=== PATIENT | female | born 1955 | race Caucasian/White ===

== ENCOUNTER 2018-05-16 05:49 | Inpatient (IN) ==
[2018-05-10 10:57] LABS: Basophils % 0.1 % (0.0-0.8); Eosinophils % 0.3 % (0.00-10.9); Hematocrit 39.5 VOL% (35.7-47.0); Hemoglobin 12.6 GM/DL (12.0-16.0); Immature Granulocytes % 0.3 %; Immature Granulocytes Absolute 0.02 #; Lymphocytes % 13.8 % (21.3-54.2); Mean Corpuscular HGB Conc 31.9 GM/DL (32-36); Mean Corpuscular Hemoglobin 33 PG (27-34); Mean Corpuscular Volume 103.1 FL (87-102); Mean Platelet Volume 10.2 FL (9.6-12.0); Monocytes # 0.2 10*3/uL (0.11-0.8); Monocytes % 2.3 % (1.7-12.7); Neutrophils # 6.3 10*3/uL (1.4-7.4); Neutrophils % 83.2 % (38.7-73.9); Platelet Count 186 T/CUMM (130-400); Red Blood Count 3.83 MC/CUMM (3.8-5.5); Red Cell Distribution Width 13.2 % (9.3-17.3); White Blood Count 7.5 T/CUMM (4-12)
[2018-05-10 11:01] LABS: Apearance,Urine Slightly Hazy (Clear); Bilirubin,Urine Negative (Negative); Blood, Urine Negative (Negative); Glucose,Urine (UA) Negative (Negative); Ketones,Urine Negative (Negative); Nitrite,Urine Negative (Negative); Protein,Urine Negative; Urine Color Yellow (Yellow); Urine Specific Gravity 1.013 (1.001-1.035); Urine Urobilinogen < 2.0 EU/DL (0.2-1.0)
[2018-05-10 11:09] LABS: INR 0.9; Partial Thromboplastin Time 27.2 SECS (0-40)
[2018-05-10 11:11] LABS: Bacteria,Urine 2+ /HPF (Few); RBC,Urine 0-1 /HPF (0-4); Squamous Epithelial Cell,Urine 1+ /HPF (0-10); WBC,Urine 15-20 /HPF (0-6)
[2018-05-10 11:29] LABS: Alanine Aminotransferase 26 U/L (13-56); Albumin 3.4 G/DL (3.4-5.0); Alkaline Phosphatase 79 U/L (45-117); Aspartate Amino Transferase 21 U/L (0-37); Bilirubin,Total < 0.39 MG/DL (0.2-1.0); Blood Urea Nitrogen 18 MG/DL (7-18); Calcium 8.3 MG/DL (8.5-10.1); Glucose 197 MG/DL (74-106); Osmolality,Calculated 285.4 MOS/KG (273-304); Potassium 3.8 MMOL/L (3.5-5.1); Sodium 140 MMOL/L (136-145); Total Protein 6.9 G/DL (6.4-8.3)
[2018-05-16] MEDS ORDERED: ceFAZolin 1,000 MG in SYRINGE 1 EACH IV ONE (06:00)
[2018-05-16] MEDS ORDERED: VANCOMYCIN INJ 1,000 MG in SODIUM CHLORIDE 0.9% 250 ML IV ONE (06:00)
[2018-05-16 06:35] LABS: INR 0.9; PT Patient Result 9.6 SECS; Partial Thromboplastin Time 25.5 SECS (0-40)
[2018-05-16] MEDS ORDERED: DIAZEPAM 5 MG TABLET PO ONE (06:43)
[2018-05-16] MEDS ORDERED: FAMOTIDINE 20 MG TABLET PO ONE (06:44)
[2018-05-16] MEDS ORDERED: VANCOMYCIN 1,000 MG VIAL ONE (07:10)
[2018-05-16] MEDS ORDERED: ceFAZolin 1,000 MG VIAL ONE (07:10)
[2018-05-16] MEDS ORDERED: DIAZEPAM 5 MG TABLET ONE (07:11)
[2018-05-16] MEDS ORDERED: FAMOTIDINE 20 MG TABLET ONE (07:12)
[2018-05-16] MEDS: LACTATED RINGERS 1,000 ML IV SCH ×4 (07:41→20:44)
[2018-05-16] MEDS ORDERED: ROPIVACAINE 0.5% 30 ML VIAL ONE ×3 (08:04→14:31)
[2018-05-16] MEDS ORDERED: BACITRACIN OINT 0.9 GM PACK TOP ONE (09:17)
[2018-05-16] MEDS ORDERED: MORPHINE 4 MG/1 ML VIAL IV PRN (09:57)
[2018-05-16] MEDS ORDERED: diphenhydrAMINE CAP 25 MG CAPSULE PO PRN (09:57)
[2018-05-16] MEDS ORDERED: MAGNESIUM HYDROXIDE SUSP 30 ML UDCUP PO PRN (09:57)
[2018-05-16] MEDS ORDERED: oxyCODONE IR 5 MG TABLET PO PRN (09:57)
[2018-05-16] MEDS ORDERED: ONDANSETRON 4 MG/2 ML VIAL IV PRN (09:57)
[2018-05-16] MEDS ORDERED: DEXTROSE 50% 25 GM/50 ML VIAL IV PRN (10:00)
[2018-05-16] MEDS ORDERED: GLUCAGON 1 MG VIAL IM PRN (10:00)
[2018-05-16] MEDS ORDERED: MIDAZOLAM 2 MG/2 ML VIAL ONE (10:28)
[2018-05-16] MEDS ORDERED: BUPIVACAINE SPINAL 0.75% 2 ML AMP SPINAL ONE (10:28)
[2018-05-16] MEDS ORDERED: TRANEXAMIC ACID 1,000 MG/10 ML VIAL ONE (10:28)
[2018-05-16] MEDS ORDERED: fentaNYL 100 MCG/2 ML VIAL ONE (10:28)
[2018-05-16] MEDS ORDERED: PROPOFOL 200 MG/20 ML VIAL IV ONE (10:29)
[2018-05-16] MEDS ORDERED: KETAMINE 500 MG/10 ML VIAL ONE (10:30)
[2018-05-16] MEDS ORDERED: ETOMIDATE 40 MG/20 ML VIAL IV ONE (10:30)
[2018-05-16] MEDS ORDERED: TEMAZEPAM 15 MG CAPSULE PO PRN (11:00)
[2018-05-16] MEDS: MORPHINE 4 MG/1 ML VIAL IV PRN ×2 (11:55→22:00)
[2018-05-16] MEDS ORDERED: LACTATED RINGERS 1,000 ML IV ONE (12:12)
[2018-05-16] MEDS ORDERED: SODIUM CHLORIDE 0.9% 100 ML IV ONE (12:12)
[2018-05-16] MEDS: oxyCODONE IR 5 MG TABLET PO PRN (12:55)
[2018-05-16] MEDS: KETOROLAC 30 MG/1 ML VIAL IV SCH ×3 (13:38→21:59)
[2018-05-16] MEDS: INSULIN LISPRO 100 UNIT/ML SUBCUT SCH ×3 (14:39→20:49)
[2018-05-16] MEDS: ceFAZolin 2,000 MG in PREMIX 1 EACH IV SCH ×2 (15:47→22:01)
[2018-05-16] MEDS: ACETAMINOPHEN 500 MG TABLET PO SCH ×2 (15:49→20:58)
[2018-05-16] MEDS ORDERED: WARFARIN 7.5 MG TABLET PO SCH (18:00)
[2018-05-16] MEDS: DOCUSATE SODIUM 100 MG CAPSULE PO SCH (20:58)
[2018-05-16] MEDS: TOPIRAMATE 25 MG TABLET PO SCH (20:58)
[2018-05-16] MEDS: buPROPion SR 150 MG TABLET PO SCH (20:58)
[2018-05-16] MEDS: SULFAMETHOX/TRIMETHOPRIM 800-160 MG TABLET PO SCH (20:58)
[2018-05-16] MEDS ORDERED: DILTIAZEM CD 300 MG CAPSULE PO SCH (21:00)
[2018-05-16] MEDS ORDERED: DOXEPIN 25 MG CAPSULE PO SCH (21:00)
[2018-05-16] MEDS ORDERED: FLUoxetine 20 MG CAPSULE PO SCH (21:00)
[2018-05-16] MEDS ORDERED: CARVEDILOL CR 20 MG CAPSULE PO SCH (21:00)
[2018-05-16] MEDS: CARVEDILOL 6.25 MG TABLET PO SCH (22:02)
[2018-05-17] MEDS: MORPHINE 4 MG/1 ML VIAL IV PRN ×2 (00:57→12:29)
[2018-05-17] MEDS: ACETAMINOPHEN 500 MG TABLET PO SCH ×2 (02:57→09:20)
[2018-05-17] MEDS: KETOROLAC 30 MG/1 ML VIAL IV SCH (04:54)
[2018-05-17] MEDS: LACTATED RINGERS 1,000 ML IV SCH (04:56)
[2018-05-17 05:20] LABS: Basophils % 0.1 % (0.0-0.8); Eosinophils # 0.1 10*3/uL (0.0-0.87); Eosinophils % 1.3 % (0.00-10.9); Hematocrit 31.7 VOL% (35.7-47.0); Hemoglobin 9.9 GM/DL (12.0-16.0); Immature Granulocytes % 0.4 %; Immature Granulocytes Absolute 0.03 #; Lymphocytes # 1.2 10*3/uL (1.4-4.0); Lymphocytes % 16.9 % (21.3-54.2); Mean Corpuscular HGB Conc 31.2 GM/DL (32-36); Mean Corpuscular Hemoglobin 33 PG (27-34); Mean Corpuscular Volume 104.3 FL (87-102); Mean Platelet Volume 10.5 FL (9.6-12.0); Monocytes # 0.9 10*3/uL (0.11-0.8); Monocytes % 12.4 % (1.7-12.7); Neutrophils # 4.9 10*3/uL (1.4-7.4); Neutrophils % 68.9 % (38.7-73.9); Platelet Count 144 T/CUMM (130-400); Red Blood Count 3.04 MC/CUMM (3.8-5.5); Red Cell Distribution Width 13.2 % (9.3-17.3); White Blood Count 7.2 T/CUMM (4-12)
[2018-05-17 05:26] LABS: PT Patient Result 10.5 SECS
[2018-05-17 05:32] LABS: Calcium 7.8 MG/DL (8.5-10.1); Osmolality,Calculated 281.4 MOS/KG (273-304); Potassium 3.8 MMOL/L (3.5-5.1)
[2018-05-17] MEDS ORDERED: WARFARIN 5 MG TABLET PO ONE (06:44)
[2018-05-17] MEDS ORDERED: ASPIRIN EC 81 MG TABLET PO SCH (09:00)
[2018-05-17] MEDS ORDERED: ENOXAPARIN 40 MG/0.4 ML SYRINGE SUBCUT SCH (09:00)
[2018-05-17] MEDS ORDERED: FOLIC ACID 1 MG TABLET PO SCH (09:00)
[2018-05-17] MEDS: buPROPion SR 150 MG TABLET PO SCH (09:17)
[2018-05-17] MEDS: SULFAMETHOX/TRIMETHOPRIM 800-160 MG TABLET PO SCH (09:17)
[2018-05-17] MEDS: CARVEDILOL 6.25 MG TABLET PO SCH (09:17)
[2018-05-17] MEDS: DOCUSATE SODIUM 100 MG CAPSULE PO SCH (09:17)
[2018-05-17] MEDS: TOPIRAMATE 25 MG TABLET PO SCH (09:20)
[2018-05-17] MEDS: oxyCODONE IR 5 MG TABLET PO PRN (10:34)
[2018-05-17 11:35] VITALS: BP 120/78
[2018-05-17] MEDS ORDERED: WARFARIN 5 MG TABLET PO SCH (18:00)
== END 2018-05-17 16:44 | disposition home health service (06) | DRG 470 ==
LOC: N.OR 05:49 → N.SDSINP 05:50 → N.3E 09:18
PROVIDERS: ADMIT Orthopaedic Surgery; ATTEND Orthopaedic Surgery

== ENCOUNTER 2021-10-28 06:44 | Inpatient (IN) ==
[2021-10-23 13:44] LABS: Basophils % 0.3 % (0.0-0.8); Eosinophils # 0.1 10*3/uL (0.0-0.87); Eosinophils % 1.3 % (0.00-10.9); Hematocrit 40.5 VOL% (35.7-47.0); Hemoglobin 13.4 GM/DL (12.0-16.0); Immature Granulocytes % 0.4 %; Immature Granulocytes Absolute 0.03 #; Lymphocytes # 1.8 10*3/uL (1.4-4.0); Lymphocytes % 22.7 % (21.3-54.2); Mean Corpuscular HGB Conc 33.1 GM/DL (32-36); Mean Platelet Volume 10.3 FL (9.6-12.0); Monocytes # 0.8 10*3/uL (0.11-0.8); Monocytes % 9.4 % (1.7-12.7); Neutrophils % 65.9 % (38.7-73.9); Platelet Count 244 T/CUMM (130-400); Red Blood Count 4.01 MC/CUMM (3.8-5.5); Red Cell Distribution Width 13.9 % (9.3-17.3)
[2021-10-23 14:05] LABS: Albumin 3.6 G/DL (3.4-5.0); Bilirubin,Total 0.4 MG/DL (0.20-1.00); Osmolality,Calculated 290.3 MOS/KG (273-304); Potassium 3.7 MMOL/L (3.5-5.1); Total Protein 6.5 G/DL (6.4-8.2)
[~2021-10-28 06:44] MED LIST: LACTATED RINGERS 1,000 ML IV SCH; ceFAZolin 2,000 MG/50 ML DUPLEX IV ONE
[2021-10-28 07:23] LABS: INR 0.9; PT Patient Result 10.2 SECS (10.5-12.0)
[2021-10-28] MEDS ORDERED: buprenorphine HCL 0.3 MG/ML VIAL ONE (07:27)
[2021-10-28] MEDS ORDERED: LIDOCAINE MPF 2% /EPI 20 ML VIAL ONE (07:27)
[2021-10-28] MEDS ORDERED: HEPARIN/NACL 0.9% 2 UNITS/ML 1,000 UNIT/500 ML BAG IV ONE (07:27)
[2021-10-28] MEDS ORDERED: DIAZEPAM 5 MG TABLET PO ONE (07:55)
[2021-10-28] MEDS ORDERED: ROCURONIUM 50 MG/5 ML VIAL IV ONE ×2 (08:01→10:35)
[2021-10-28] MEDS ORDERED: fentaNYL 250 MCG/5 ML VIAL ONE (08:01)
[2021-10-28] MEDS ORDERED: ETOMIDATE 40 MG/20 ML VIAL IV ONE (08:01)
[2021-10-28] MEDS ORDERED: propofoL 200 MG/20 ML VIAL IV ONE (08:01)
[2021-10-28] MEDS ORDERED: MIDAZOLAM 2 MG/2 ML VIAL ONE (08:01)
[2021-10-28] MEDS ORDERED: SEVOFLURANE 1 UNIT/15 MINUTE INH ONE (08:01)
[2021-10-28] MEDS ORDERED: LIDOCAINE 2% 5 ML VIAL ONE (08:01)
[2021-10-28] MEDS ORDERED: ONDANSETRON 4 MG/2 ML VIAL ONE (08:01)
[2021-10-28] MEDS ORDERED: ROPIVACAINE 0.5% 30 ML VIAL ONE (08:08)
[2021-10-28] MEDS ORDERED: DEXAMETHASONE 4 MG/1 ML VIAL ONE (08:08)
[2021-10-28] MEDS ORDERED: LIDOCAINE 1% 5 ML VIAL ONE (08:08)
[2021-10-28] MEDS ORDERED: VANCOMYCIN 500 MG VIAL ONE (08:13)
[2021-10-28] MEDS ORDERED: ACETAMINOPHEN INJ 1,000 MG/100 ML VIAL IV ONE (09:47)
[2021-10-28] MEDS ORDERED: PHENYLEPHRINE 1 MG/10 ML SYRINGE IV ONE ×2 (10:29→10:57)
[2021-10-28] MEDS ORDERED: LACTATED RINGERS 1,000 ML IV ONE (10:29)
[2021-10-28] MEDS ORDERED: SUGAMMADEX 200 MG/2 ML VIAL IV ONE (11:04)
[2021-10-28] MEDS ORDERED: ONDANSETRON 4 MG/2 ML VIAL IV PRN ×2 (11:35→12:03)
[2021-10-28] MEDS ORDERED: HYDROmorphone 1 MG/1 ML SYRINGE IV PRN (11:35)
[2021-10-28] MEDS ORDERED: GLUCAGON 1 MG VIAL IM PRN (11:35)
[2021-10-28] MEDS ORDERED: KETOROLAC 30 MG/1 ML VIAL IV ONE (11:42)
[2021-10-28] MEDS ORDERED: LEVALBUTEROL 1.25 MG/3 ML NEB RESP TX ONE (11:44)
[2021-10-28] MEDS ORDERED: DEXTROSE 10% 250 ML BAG IV PRN (11:47)
[2021-10-28] MEDS: HYDROmorphone 1 MG/1 ML SYRINGE IV PRN ×5 (12:00→20:40)
[2021-10-28 12:25] LABS: Basophils % 0.1 % (0.0-0.8); Eosinophils % 0.2 % (0.00-10.9); Hematocrit 37.5 VOL% (35.7-47.0); Hemoglobin 12.2 GM/DL (12.0-16.0); Immature Granulocytes % 0.6 %; Immature Granulocytes Absolute 0.06 #; Lymphocytes # 1.3 10*3/uL (1.4-4.0); Lymphocytes % 13.2 % (21.3-54.2); Mean Corpuscular HGB Conc 32.5 GM/DL (32-36); Mean Corpuscular Volume 102.5 FL (87-102); Mean Platelet Volume 9.9 FL (9.6-12.0); Monocytes # 0.2 10*3/uL (0.11-0.8); Monocytes % 2.4 % (1.7-12.7); Neutrophils % 83.5 % (38.7-73.9); Platelet Count 208 T/CUMM (130-400); Red Blood Count 3.66 MC/CUMM (3.8-5.5); White Blood Count 9.9 T/CUMM (4-12)
[2021-10-28 12:34] LABS: Calcium 8.5 MG/DL (8.5-10.1); Osmolality,Calculated 281.5 MOS/KG (273-304); Potassium 4.5 MMOL/L (3.5-5.1)
[2021-10-28] MEDS ORDERED: DILTIAZEM 30 MG TABLET PO ONE (13:52)
[2021-10-28] MEDS: KETOROLAC 10 MG TABLET PO SCH ×3 (13:57→23:11)
[2021-10-28] MEDS: POTASSIUM CHLORIDE INJ 10 MEQ in SODIUM CHLORIDE 0.45% 1,000 ML IV SCH ×2 (15:13→23:12)
[2021-10-28] MEDS: CYCLOBENZAPRINE 10 MG TABLET PO SCH ×2 (15:13→20:40)
[2021-10-28] MEDS ORDERED: NITROPRUSSIDE 100 MG in DEXTROSE 5% 246 ML IV PRN (15:17)
[2021-10-28] MEDS ORDERED: NITROPRUSSIDE 50 MG/2 ML VIAL ONE ×2 (15:41→15:43)
[2021-10-28] MEDS: INSULIN REGULAR 100 UNIT/ML SUBCUT SCH ×2 (16:45→20:49)
[2021-10-28] MEDS: carvediloL 6.25 MG TABLET PO SCH (20:40)
[2021-10-28] MEDS: buPROPion SR 150 MG TABLET PO SCH (20:40)
[2021-10-28] MEDS: DOXEPIN 25 MG CAPSULE PO SCH (20:40)
[2021-10-29] MEDS: HYDROmorphone 1 MG/1 ML SYRINGE IV PRN ×4 (04:41→18:10)
[2021-10-29 04:53] LABS: Basophils % 0.1 % (0.0-0.8); Hematocrit 34.1 VOL% (35.7-47.0); Immature Granulocytes % 0.5 %; Immature Granulocytes Absolute 0.08 #; Lymphocytes # 1.1 10*3/uL (1.4-4.0); Lymphocytes % 7.3 % (21.3-54.2); Mean Corpuscular HGB Conc 32.3 GM/DL (32-36); Mean Corpuscular Volume 104.9 FL (87-102); Monocytes # 1.4 10*3/uL (0.11-0.8); Monocytes % 9.5 % (1.7-12.7); Neutrophils % 82.6 % (38.7-73.9); Platelet Count 193 T/CUMM (130-400); Red Blood Count 3.25 MC/CUMM (3.8-5.5); Red Cell Distribution Width 14.1 % (9.3-17.3); White Blood Count 14.8 T/CUMM (4-12)
[2021-10-29 05:03] LABS: INR 0.9; PT Patient Result 10.3 SECS (10.5-12.0)
[2021-10-29 05:05] LABS: Calcium 8.5 MG/DL (8.5-10.1); Osmolality,Calculated 274.8 MOS/KG (273-304); Potassium 4.2 MMOL/L (3.5-5.1)
[2021-10-29] MEDS: KETOROLAC 10 MG TABLET PO SCH ×3 (05:58→18:09)
[2021-10-29] MEDS: ENOXAPARIN 30 MG/0.3 ML SYRINGE SUBCUT SCH ×2 (05:58→18:09)
[2021-10-29] MEDS: CYCLOBENZAPRINE 10 MG TABLET PO SCH ×3 (08:36→20:53)
[2021-10-29] MEDS: carvediloL 6.25 MG TABLET PO SCH ×2 (08:37→20:53)
[2021-10-29] MEDS: FOLIC ACID 1 MG TABLET PO SCH (08:37)
[2021-10-29] MEDS: PANTOPRAZOLE 40 MG TABLET PO SCH (08:37)
[2021-10-29] MEDS: buPROPion SR 150 MG TABLET PO SCH ×2 (08:37→20:53)
[2021-10-29] MEDS: DILTIAZEM CD 300 MG CAPSULE PO SCH (08:38)
[2021-10-29] MEDS ORDERED: FUROSEMIDE 40 MG/4 ML VIAL IV ONE (08:51)
[2021-10-29] MEDS: INSULIN REGULAR 100 UNIT/ML SUBCUT SCH ×4 (09:26→20:53)
[2021-10-29] MEDS: POTASSIUM CHLORIDE INJ 10 MEQ in SODIUM CHLORIDE 0.45% 1,000 ML IV SCH (13:05)
[2021-10-29] MEDS: DOXEPIN 25 MG CAPSULE PO SCH (20:53)
[2021-10-30] MEDS: KETOROLAC 10 MG TABLET PO SCH ×5 (00:23→23:44)
[2021-10-30] MEDS ORDERED: LEVALBUTEROL 0.63 MG/3 ML NEB RESP TX ONE (00:44)
[2021-10-30] MEDS: HYDROmorphone 1 MG/1 ML SYRINGE IV PRN ×3 (00:46→10:00)
[2021-10-30 04:29] LABS: INR 0.9; PT Patient Result 10.3 SECS (10.1-12.1)
[2021-10-30] MEDS: ENOXAPARIN 30 MG/0.3 ML SYRINGE SUBCUT SCH ×2 (06:04→18:05)
[2021-10-30] MEDS ORDERED: FUROSEMIDE 40 MG/4 ML VIAL IV ONE (08:04)
[2021-10-30] MEDS: CYCLOBENZAPRINE 10 MG TABLET PO SCH ×3 (08:53→22:02)
[2021-10-30] MEDS: methylPREDNISolone SOD SUC 40 MG/1 ML VIAL IV SCH ×2 (08:53→18:05)
[2021-10-30] MEDS: FOLIC ACID 1 MG TABLET PO SCH (08:53)
[2021-10-30] MEDS: buPROPion SR 150 MG TABLET PO SCH ×2 (08:53→22:02)
[2021-10-30] MEDS: DILTIAZEM CD 300 MG CAPSULE PO SCH (08:53)
[2021-10-30] MEDS: carvediloL 12.5 MG TABLET PO SCH ×2 (08:54→22:02)
[2021-10-30] MEDS: PANTOPRAZOLE 40 MG TABLET PO SCH (08:54)
[2021-10-30] MEDS: INSULIN REGULAR 100 UNIT/ML SUBCUT SCH ×4 (10:32→22:02)
[2021-10-30] MEDS ORDERED: MAGNESIUM HYDROXIDE SUSP 30 ML UDCUP PO PRN (11:38)
[2021-10-30] MEDS: ALBUTEROL/IPRATROPIUM 3 ML NEB RESP TX SCH ×2 (13:20→19:42)
[2021-10-30] MEDS: WARFARIN 5 MG TABLET PO SCH (18:05)
[2021-10-30] MEDS: HALOPERIDOL 5 MG/ML AMP IM PRN (20:17)
[2021-10-30] MEDS ORDERED: ONDANSETRON ODT 4 MG TABLET PO PRN (21:42)
[2021-10-30] MEDS: DOXEPIN 25 MG CAPSULE PO SCH (22:02)
[2021-10-30] MEDS ORDERED: TEMAZEPAM 30 MG PO PRN (22:32)
[2021-10-31] MEDS: ALBUTEROL/IPRATROPIUM 3 ML NEB RESP TX SCH ×4 (00:05→20:00)
[2021-10-31 04:55] LABS: Hematocrit 31.5 VOL% (35.7-47.0); Hemoglobin 10.3 GM/DL (12.0-16.0); Immature Granulocytes Absolute 0.12 #; Lymphocytes # 0.7 10*3/uL (1.4-4.0); Lymphocytes % 5.6 % (21.3-54.2); Mean Corpuscular HGB Conc 32.7 GM/DL (32-36); Mean Corpuscular Volume 104.3 FL (87-102); Mean Platelet Volume 10.4 FL (9.6-12.0); Monocytes # 0.9 10*3/uL (0.11-0.8); Monocytes % 7.1 % (1.7-12.7); Neutrophils % 86.3 % (38.7-73.9); Platelet Count 188 T/CUMM (130-400); Red Blood Count 3.02 MC/CUMM (3.8-5.5); White Blood Count 12.2 T/CUMM (4-12)
[2021-10-31 05:02] LABS: INR 0.9; PT Patient Result 10.3 SECS (10.1-12.1)
[2021-10-31 05:10] LABS: Calcium 8.6 MG/DL (8.5-10.1); Osmolality,Calculated 280.8 MOS/KG (273-304)
[2021-10-31] MEDS: ENOXAPARIN 30 MG/0.3 ML SYRINGE SUBCUT SCH ×2 (05:10→17:06)
[2021-10-31] MEDS: KETOROLAC 10 MG TABLET PO SCH ×3 (05:10→17:00)
[2021-10-31] MEDS: INSULIN REGULAR 100 UNIT/ML SUBCUT SCH ×4 (07:23→20:28)
[2021-10-31] MEDS: DILTIAZEM CD 300 MG CAPSULE PO SCH (08:26)
[2021-10-31] MEDS: carvediloL 12.5 MG TABLET PO SCH ×2 (08:26→21:19)
[2021-10-31] MEDS: FOLIC ACID 1 MG TABLET PO SCH (08:26)
[2021-10-31] MEDS: NICOTINE 21 MG/24 HR PATCH TRANSDERM SCH (08:26)
[2021-10-31] MEDS: CYCLOBENZAPRINE 10 MG TABLET PO SCH ×3 (08:26→21:19)
[2021-10-31] MEDS: buPROPion SR 150 MG TABLET PO SCH ×2 (08:26→21:18)
[2021-10-31] MEDS: PANTOPRAZOLE 40 MG TABLET PO SCH (08:27)
[2021-10-31] MEDS ORDERED: WARFARIN 7.5 MG TABLET PO SCH (18:00)
[2021-10-31] MEDS: DOXEPIN 25 MG CAPSULE PO SCH (21:19)
[2021-11-01] MEDS: ALBUTEROL/IPRATROPIUM 3 ML NEB RESP TX SCH ×4 (00:13→19:18)
[2021-11-01] MEDS: KETOROLAC 10 MG TABLET PO SCH ×5 (05:39→23:22)
[2021-11-01] MEDS: ENOXAPARIN 30 MG/0.3 ML SYRINGE SUBCUT SCH ×2 (05:39→17:45)
[2021-11-01 05:57] LABS: INR 1.1; PT Patient Result 11.8 SECS (10.1-12.1)
[2021-11-01] MEDS: INSULIN REGULAR 100 UNIT/ML SUBCUT SCH ×4 (08:06→21:51)
[2021-11-01] MEDS: CYCLOBENZAPRINE 10 MG TABLET PO SCH ×3 (09:18→21:49)
[2021-11-01] MEDS: buPROPion SR 150 MG TABLET PO SCH ×2 (09:18→21:48)
[2021-11-01] MEDS: FOLIC ACID 1 MG TABLET PO SCH (09:18)
[2021-11-01] MEDS: PANTOPRAZOLE 40 MG TABLET PO SCH (09:18)
[2021-11-01] MEDS: DILTIAZEM CD 300 MG CAPSULE PO SCH (09:18)
[2021-11-01] MEDS: carvediloL 12.5 MG TABLET PO SCH ×2 (09:18→21:49)
[2021-11-01] MEDS: NICOTINE 21 MG/24 HR PATCH TRANSDERM SCH (09:22)
[2021-11-01 10:30] LABS: Albumin 2.8 G/DL (3.4-5.0); Bilirubin,Total 0.6 MG/DL (0.20-1.00); Osmolality,Calculated 290.3 MOS/KG (273-304); Potassium 3.8 MMOL/L (3.5-5.1); Total Protein 6.2 G/DL (6.4-8.2)
[2021-11-01 10:39] LABS: Arterial Base Excess iSTAT 10 MMOL/L (-2.5-2.5); Arterial Bicarbonate iSTAT 35.4 MMOL/L (20-26); Arterial O2 Saturation iSTAT 93 % (95-100); Arterial PCO2 iSTAT 50 MM HG (35-48); Arterial PO2 iSTAT 65 MM HG (80-95); Arterial Total CO2 iSTAT 37 MMO/L (23-27)
[2021-11-01] MEDS: WARFARIN 5 MG TABLET PO SCH (17:45)
[2021-11-01] MEDS ORDERED: WARFARIN 5 MG TABLET PO ONE (18:00)
[2021-11-01] MEDS: DOXEPIN 25 MG CAPSULE PO SCH (21:49)
[2021-11-02] MEDS: ALBUTEROL/IPRATROPIUM 3 ML NEB RESP TX SCH ×5 (00:44→23:20)
[2021-11-02 05:27] LABS: INR 1.3; PT Patient Result 14.3 SECS (10.1-12.1)
[2021-11-02] MEDS: KETOROLAC 10 MG TABLET PO SCH (06:08)
[2021-11-02] MEDS: ENOXAPARIN 30 MG/0.3 ML SYRINGE SUBCUT SCH ×2 (06:08→17:48)
[2021-11-02] MEDS: INSULIN REGULAR 100 UNIT/ML SUBCUT SCH ×4 (08:00→21:00)
[2021-11-02] MEDS: FOLIC ACID 1 MG TABLET PO SCH (08:32)
[2021-11-02] MEDS: buPROPion SR 150 MG TABLET PO SCH ×2 (08:32→21:04)
[2021-11-02] MEDS: DILTIAZEM CD 300 MG CAPSULE PO SCH (08:32)
[2021-11-02] MEDS: PANTOPRAZOLE 40 MG TABLET PO SCH (08:32)
[2021-11-02] MEDS: carvediloL 12.5 MG TABLET PO SCH ×2 (08:32→21:04)
[2021-11-02] MEDS: CYCLOBENZAPRINE 10 MG TABLET PO SCH ×3 (08:32→21:04)
[2021-11-02] MEDS: NICOTINE 21 MG/24 HR PATCH TRANSDERM SCH (08:33)
[2021-11-02] MEDS: WARFARIN 5 MG TABLET PO SCH (17:47)
[2021-11-02] MEDS ORDERED: WARFARIN 5 MG TABLET PO ONE (18:00)
[2021-11-02] MEDS ORDERED: TEMAZEPAM 15 MG CAPSULE PO SCH (21:00)
[2021-11-02] MEDS: DOXEPIN 25 MG CAPSULE PO SCH (21:05)
[2021-11-03] MEDS: HALOPERIDOL 5 MG/ML AMP IM PRN (02:41)
[2021-11-03] MEDS: ENOXAPARIN 30 MG/0.3 ML SYRINGE SUBCUT SCH (06:06)
[2021-11-03] MEDS: ALBUTEROL/IPRATROPIUM 3 ML NEB RESP TX SCH ×2 (06:50→13:15)
[2021-11-03 08:06] LABS: INR 2.3
[2021-11-03] MEDS ORDERED: METOPROLOL TARTRATE 50 MG TABLET PO SCH (09:00)
[2021-11-03] MEDS: DILTIAZEM CD 300 MG CAPSULE PO SCH (10:22)
[2021-11-03] MEDS: FOLIC ACID 1 MG TABLET PO SCH (10:22)
[2021-11-03] MEDS: NICOTINE 21 MG/24 HR PATCH TRANSDERM SCH (10:22)
[2021-11-03] MEDS: CYCLOBENZAPRINE 10 MG TABLET PO SCH ×2 (10:22→16:35)
[2021-11-03] MEDS: PANTOPRAZOLE 40 MG TABLET PO SCH (10:24)
[2021-11-03] MEDS: buPROPion SR 150 MG TABLET PO SCH (10:24)
[2021-11-03] MEDS: INSULIN REGULAR 100 UNIT/ML SUBCUT SCH ×2 (10:28→14:01)
[2021-11-03 13:58] VITALS: BP 104/67
== END 2021-11-03 16:55 | disposition home health service (06) | DRG 163 ==
LOC: N.SDSINP 06:44 → N.ICU 13:15 → N.TELES 10-31 17:41
PROVIDERS: ADMIT Surgery; ATTEND Surgery

== ENCOUNTER 2021-11-07 12:08 | Inpatient (IN) ==
[2021-11-07] MEDS ORDERED: methylPREDNISolone SOD SUC 125 MG/2 ML VIAL IV STA (13:46)
[2021-11-07] MEDS ORDERED: FUROSEMIDE 100 MG/10 ML VIAL IV STA (13:46)
[2021-11-07] MEDS ORDERED: ALBUTEROL/IPRATROPIUM 3 ML NEB RESP TX STA (13:46)
[2021-11-07 13:54] LABS: Basophils % 0.2 % (0.0-0.8); Eosinophils % 0.1 % (0.00-10.9); Hematocrit 29.7 VOL% (35.7-47.0); Hemoglobin 9.8 GM/DL (12.0-16.0); Immature Granulocytes % 1.4 %; Immature Granulocytes Absolute 0.28 #; Lymphocytes # 2.1 10*3/uL (1.4-4.0); Lymphocytes % 10.4 % (21.3-54.2); Mean Corpuscular Volume 101.7 FL (87-102); Mean Platelet Volume 10.9 FL (9.6-12.0); Monocytes # 1.3 10*3/uL (0.11-0.8); Monocytes % 6.6 % (1.7-12.7); NRBC # 0.02 10*3/uL; Neutrophils % 81.3 % (38.7-73.9); Platelet Count 324 T/CUMM (130-400); Red Blood Count 2.92 MC/CUMM (3.8-5.5); Red Cell Distribution Width 15.3 % (9.3-17.3); White Blood Count 19.8 T/CUMM (4-12)
[2021-11-07 14:06] LABS: Albumin 2.3 G/DL (3.4-5.0); Bilirubin,Total 0.8 MG/DL (0.20-1.00); Calcium 8.2 MG/DL (8.5-10.1); Osmolality,Calculated 283.7 MOS/KG (273-304); Potassium 3.2 MMOL/L (3.5-5.1); Total Protein 6.3 G/DL (6.4-8.2)
[2021-11-07] MEDS ORDERED: ALBUTEROL 2.5 MG/3 ML NEB RESP TX PRN (15:07)
[2021-11-07] MEDS ORDERED: ONDANSETRON 4 MG/2 ML VIAL IV PRN (15:07)
[2021-11-07 15:22] LABS: INR 2.5; PT Patient Result 25.7 SECS (10.1-12.1); Partial Thromboplastin Time 35.7 SECS (23.7-32.9)
[2021-11-07] MEDS ORDERED: MAGNESIUM HYDROXIDE SUSP 30 ML UDCUP PO PRN (15:57)
[2021-11-07 16:09] LABS: Arterial Base Excess iSTAT 4 MMOL/L (-2.5-2.5); Arterial O2 Saturation iSTAT 79 % (95-100); Arterial PCO2 iSTAT 34 MM HG (35-48); Arterial PO2 iSTAT 39 MM HG (80-95); Arterial Total CO2 iSTAT 28 MMO/L (23-27); Arterial pH iSTAT 7.503 (7.35-7.45)
[2021-11-07] MEDS ORDERED: LEVOFLOXACIN INJ 500 MG/100 ML PREMIX IV ONE (16:30)
[2021-11-07] MEDS: POTASSIUM CHLORIDE 20 MEQ TABLET PO SCH ×2 (17:33→20:08)
[2021-11-07] MEDS: PANTOPRAZOLE 40 MG TABLET PO SCH (17:33)
[2021-11-07] MEDS: ALBUTEROL/IPRATROPIUM 3 ML NEB RESP TX SCH (19:50)
[2021-11-07] MEDS: METOPROLOL TARTRATE 50 MG TABLET PO SCH (20:08)
[2021-11-07] MEDS: buPROPion SR 150 MG TABLET PO SCH (20:08)
[2021-11-07] MEDS: ENOXAPARIN 30 MG/0.3 ML SYRINGE SUBCUT SCH (20:09)
[2021-11-08] MEDS: ALBUTEROL/IPRATROPIUM 3 ML NEB RESP TX SCH ×5 (00:42→23:55)
[2021-11-08 04:15] LABS: Basophils % 0.1 % (0.0-0.8); Hematocrit 31.5 VOL% (35.7-47.0); Hemoglobin 10.2 GM/DL (12.0-16.0); Immature Granulocytes % 1.2 %; Immature Granulocytes Absolute 0.19 #; Lymphocytes % 6.1 % (21.3-54.2); Mean Corpuscular HGB Conc 32.4 GM/DL (32-36); Mean Corpuscular Volume 102.6 FL (87-102); Mean Platelet Volume 10.9 FL (9.6-12.0); Monocytes # 0.6 10*3/uL (0.11-0.8); Monocytes % 3.6 % (1.7-12.7); NRBC # 0.03 10*3/uL; Platelet Count 302 T/CUMM (130-400); Red Blood Count 3.07 MC/CUMM (3.8-5.5); Red Cell Distribution Width 15.2 % (9.3-17.3); White Blood Count 16.4 T/CUMM (4-12)
[2021-11-08 04:37] LABS: Calcium 8.6 MG/DL (8.5-10.1); Osmolality,Calculated 284.8 MOS/KG (273-304); Potassium 3.8 MMOL/L (3.5-5.1)
[2021-11-08] MEDS ORDERED: FUROSEMIDE 40 MG/4 ML VIAL IV ONE (07:26)
[2021-11-08] MEDS: METOPROLOL TARTRATE 50 MG TABLET PO SCH ×2 (08:21→20:34)
[2021-11-08] MEDS: FOLIC ACID 1 MG TABLET PO SCH (08:21)
[2021-11-08] MEDS: PANTOPRAZOLE 40 MG TABLET PO SCH (08:21)
[2021-11-08] MEDS: buPROPion SR 150 MG TABLET PO SCH ×2 (08:21→20:34)
[2021-11-08 11:05] LABS: Arterial Base Excess iSTAT 8 MMOL/L (-2.5-2.5); Arterial Bicarbonate iSTAT 31.1 MMOL/L (20-26); Arterial O2 Saturation iSTAT 86 % (95-100); Arterial PCO2 iSTAT 36 MM HG (35-48); Arterial PO2 iSTAT 45 MM HG (80-95); Arterial Total CO2 iSTAT 32 MMO/L (23-27); Arterial pH iSTAT 7.548 (7.35-7.45)
[2021-11-08 11:35] LABS: Bacteria,Urine Moderate /HPF (Few); Hyaline Casts,Urine 3 /LPF (0-3); Mucus,Urine Occasional /LPF (Occasional); RBC,Urine <1 /HPF (0-4); Squamous Epithelial Cell,Urine Occasional /HPF (0-10)
[2021-11-08 11:38] LABS: Urine Appearance Clear (Clear); Urine Color Light Yellow (Yellow)
[2021-11-08 11:39] LABS: Bilirubin,Urine Negative (Negative); Blood, Urine Negative (Negative); Glucose,Urine (UA) Negative (Negative); Ketones,Urine Negative (Negative); Nitrite,Urine Negative (Negative); Protein,Urine Negative (Negative); Urine Specific Gravity 1.015 (1.001-1.035); Urine Urobilinogen 0.2 eU/dL (<2.0); Urine pH 5.5 (4.5-8.0)
[2021-11-08] MEDS: LEVOFLOXACIN INJ 250 MG/50 ML PREMIX IV SCH (17:19)
[2021-11-08] MEDS: WARFARIN 5 MG TABLET PO SCH (17:19)
[2021-11-08] MEDS: ENOXAPARIN 30 MG/0.3 ML SYRINGE SUBCUT SCH (20:35)
[2021-11-09 04:35] LABS: Basophils % 0.1 % (0.0-0.8); Eosinophils % 0.2 % (0.00-10.9); Hematocrit 30.6 VOL% (35.7-47.0); Hemoglobin 9.8 GM/DL (12.0-16.0); Immature Granulocytes Absolute 0.15 #; Lymphocytes # 1.5 10*3/uL (1.4-4.0); Lymphocytes % 9.9 % (21.3-54.2); Mean Corpuscular Volume 104.1 FL (87-102); Mean Platelet Volume 10.6 FL (9.6-12.0); Monocytes # 1.1 10*3/uL (0.11-0.8); Monocytes % 7.2 % (1.7-12.7); NRBC # 0.02 10*3/uL; Neutrophils % 81.6 % (38.7-73.9); Platelet Count 352 T/CUMM (130-400); Red Blood Count 2.94 MC/CUMM (3.8-5.5); Red Cell Distribution Width 15.3 % (9.3-17.3); White Blood Count 15.5 T/CUMM (4-12)
[2021-11-09 04:50] LABS: Albumin 2.1 G/DL (3.4-5.0); Bilirubin,Total 0.7 MG/DL (0.20-1.00); Calcium 8.5 MG/DL (8.5-10.1); Osmolality,Calculated 283.5 MOS/KG (273-304); Potassium 3.2 MMOL/L (3.5-5.1); Total Protein 6.1 G/DL (6.4-8.2)
[2021-11-09 04:55] LABS: Arterial Base Excess iSTAT 10 MMOL/L (-2.5-2.5); Arterial Bicarbonate iSTAT 33.7 MMOL/L (20-26); Arterial O2 Saturation iSTAT 96 % (95-100); Arterial PCO2 iSTAT 43 MM HG (35-48); Arterial PO2 iSTAT 77 MM HG (80-95); Arterial Total CO2 iSTAT 35 MMO/L (23-27)
[2021-11-09] MEDS: POTASSIUM CHLORIDE 20 MEQ TABLET PO SCH ×2 (05:36→10:56)
[2021-11-09] MEDS: ALBUTEROL/IPRATROPIUM 3 ML NEB RESP TX SCH ×3 (07:21→19:53)
[2021-11-09] MEDS: buPROPion SR 150 MG TABLET PO SCH ×2 (08:36→20:10)
[2021-11-09] MEDS: PANTOPRAZOLE 40 MG TABLET PO SCH (08:36)
[2021-11-09] MEDS: FOLIC ACID 1 MG TABLET PO SCH (08:36)
[2021-11-09] MEDS: METOPROLOL TARTRATE 50 MG TABLET PO SCH ×2 (08:37→20:10)
[2021-11-09] MEDS ORDERED: ZALEPLON 5 MG CAPSULE PO PRN (14:02)
[2021-11-09] MEDS: LEVOFLOXACIN INJ 250 MG/50 ML PREMIX IV SCH (16:35)
[2021-11-09] MEDS: WARFARIN 5 MG TABLET PO SCH (18:08)
[2021-11-09] MEDS: ENOXAPARIN 30 MG/0.3 ML SYRINGE SUBCUT SCH (20:10)
[2021-11-10] MEDS: ALBUTEROL/IPRATROPIUM 3 ML NEB RESP TX SCH ×4 (00:34→18:50)
[2021-11-10 03:21] LABS: ABG Base Excess 8.8 MMOL/L (-2.5-2.5); ABG HCO3 32.6 MMOL/L (20-26); ABG Oxygen Saturation 99.4 % (95-100); ABG PCO2 56.6 MM HG (35-48); ABG PH 7.402 (7.35-7.45); ABG TCO2 32.3 MMOL/L (23-27)
[2021-11-10 04:49] LABS: Basophils % 0.1 % (0.0-0.8); Eosinophils # 0.1 10*3/uL (0.0-0.87); Hematocrit 31.8 VOL% (35.7-47.0); Hemoglobin 9.8 GM/DL (12.0-16.0); Immature Granulocytes % 0.9 %; Immature Granulocytes Absolute 0.09 #; Lymphocytes # 1.4 10*3/uL (1.4-4.0); Lymphocytes % 14.4 % (21.3-54.2); Mean Corpuscular HGB Conc 30.8 GM/DL (32-36); Mean Platelet Volume 10.7 FL (9.6-12.0); Monocytes # 0.8 10*3/uL (0.11-0.8); Monocytes % 8.2 % (1.7-12.7); NRBC # 0.02 10*3/uL; Neutrophils % 75.4 % (38.7-73.9); Platelet Count 360 T/CUMM (130-400); Red Cell Distribution Width 15.2 % (9.3-17.3); White Blood Count 9.9 T/CUMM (4-12)
[2021-11-10 04:57] LABS: INR 2.4; PT Patient Result 24.5 SECS (10.1-12.1)
[2021-11-10 05:14] LABS: Albumin 2.1 G/DL (3.4-5.0); Bilirubin,Total 0.5 MG/DL (0.20-1.00); Calcium 8.9 MG/DL (8.5-10.1); Osmolality,Calculated 286.3 MOS/KG (273-304); Potassium 3.6 MMOL/L (3.5-5.1); Total Protein 6.1 G/DL (6.4-8.2)
[2021-11-10] MEDS: PANTOPRAZOLE 40 MG TABLET PO SCH (09:14)
[2021-11-10] MEDS: buPROPion SR 150 MG TABLET PO SCH ×2 (09:14→21:20)
[2021-11-10] MEDS: FOLIC ACID 1 MG TABLET PO SCH (09:14)
[2021-11-10] MEDS: METOPROLOL TARTRATE 50 MG TABLET PO SCH ×2 (09:14→21:21)
[2021-11-10] MEDS ORDERED: GLUCAGON 1 MG VIAL IM PRN (13:49)
[2021-11-10] MEDS ORDERED: DEXTROSE 10% 250 ML BAG IV PRN (14:26)
[2021-11-10] MEDS: LEVOFLOXACIN INJ 250 MG/50 ML PREMIX IV SCH (17:18)
[2021-11-10] MEDS: INSULIN LISPRO 100 UNIT/ML SUBCUT SCH (17:26)
[2021-11-10] MEDS ORDERED: WARFARIN 7.5 MG TABLET PO SCH (18:00)
[2021-11-10] MEDS: TEMAZEPAM 15 MG CAPSULE PO SCH (21:21)
[2021-11-11] MEDS: ALBUTEROL/IPRATROPIUM 3 ML NEB RESP TX SCH ×4 (00:28→18:58)
[2021-11-11] MEDS: INSULIN LISPRO 100 UNIT/ML SUBCUT SCH ×5 (00:59→20:17)
[2021-11-11 03:42] LABS: Basophils % 0.1 % (0.0-0.8); Eosinophils # 0.1 10*3/uL (0.0-0.87); Hematocrit 28.9 VOL% (35.7-47.0); Hemoglobin 9.3 GM/DL (12.0-16.0); Immature Granulocytes % 0.7 %; Immature Granulocytes Absolute 0.07 #; Lymphocytes # 1.9 10*3/uL (1.4-4.0); Lymphocytes % 19.8 % (21.3-54.2); Mean Corpuscular HGB Conc 32.2 GM/DL (32-36); Mean Corpuscular Volume 102.8 FL (87-102); Mean Platelet Volume 10.3 FL (9.6-12.0); Monocytes # 0.9 10*3/uL (0.11-0.8); Monocytes % 8.9 % (1.7-12.7); Neutrophils % 69.5 % (38.7-73.9); Platelet Count 334 T/CUMM (130-400); Red Blood Count 2.81 MC/CUMM (3.8-5.5); Red Cell Distribution Width 14.3 % (9.3-17.3); White Blood Count 9.6 T/CUMM (4-12)
[2021-11-11 03:52] LABS: PT Patient Result 30.6 SECS (10.1-12.1)
[2021-11-11 04:08] LABS: Albumin 2.2 G/DL (3.4-5.0); Bilirubin,Total 0.4 MG/DL (0.20-1.00); Calcium 8.7 MG/DL (8.5-10.1); Osmolality,Calculated 276.7 MOS/KG (273-304); Potassium 3.3 MMOL/L (3.5-5.1); Total Protein 5.6 G/DL (6.4-8.2)
[2021-11-11 04:22] LABS: Arterial Base Excess iSTAT 10 MMOL/L (-2.5-2.5); Arterial Bicarbonate iSTAT 34.9 MMOL/L (20-26); Arterial O2 Saturation iSTAT 93 % (95-100); Arterial PCO2 iSTAT 47 MM HG (35-48); Arterial PO2 iSTAT 64 MM HG (80-95); Arterial Total CO2 iSTAT 36 MMO/L (23-27); Arterial pH iSTAT 7.481 (7.35-7.45)
[2021-11-11] MEDS: FOLIC ACID 1 MG TABLET PO SCH (08:01)
[2021-11-11] MEDS: PANTOPRAZOLE 40 MG TABLET PO SCH (08:01)
[2021-11-11] MEDS: METOPROLOL TARTRATE 50 MG TABLET PO SCH ×2 (08:01→20:18)
[2021-11-11] MEDS: buPROPion SR 150 MG TABLET PO SCH ×2 (08:01→20:17)
[2021-11-11] MEDS ORDERED: POTASSIUM CHLORIDE RIDER 20 MEQ/100 ML PREMIX IV PRN (08:56)
[2021-11-11] MEDS: POTASSIUM CHLORIDE 20 MEQ TABLET PO PRN ×3 (10:00→16:11)
[2021-11-11] MEDS: FUROSEMIDE 40 MG/4 ML VIAL IV SCH (12:56)
[2021-11-11] MEDS: WARFARIN 5 MG TABLET PO SCH (17:51)
[2021-11-11] MEDS: TEMAZEPAM 15 MG CAPSULE PO SCH (20:24)
[2021-11-12] MEDS: ALBUTEROL/IPRATROPIUM 3 ML NEB RESP TX SCH ×4 (00:37→19:41)
[2021-11-12 03:16] LABS: Basophils % 0.1 % (0.0-0.8); Eosinophils # 0.2 10*3/uL (0.0-0.87); Eosinophils % 1.8 % (0.00-10.9); Hematocrit 31.6 VOL% (35.7-47.0); Hemoglobin 10.1 GM/DL (12.0-16.0); Immature Granulocytes % 0.6 %; Immature Granulocytes Absolute 0.05 #; Lymphocytes # 1.4 10*3/uL (1.4-4.0); Lymphocytes % 16.9 % (21.3-54.2); Mean Corpuscular Volume 101.9 FL (87-102); Mean Platelet Volume 10.1 FL (9.6-12.0); Monocytes # 0.8 10*3/uL (0.11-0.8); Monocytes % 9.8 % (1.7-12.7); Neutrophils % 70.8 % (38.7-73.9); Platelet Count 359 T/CUMM (130-400); Red Cell Distribution Width 14.4 % (9.3-17.3); White Blood Count 8.5 T/CUMM (4-12)
[2021-11-12 03:32] LABS: Calcium 8.8 MG/DL (8.5-10.1); Osmolality,Calculated 279.5 MOS/KG (273-304); Potassium 3.7 MMOL/L (3.5-5.1)
[2021-11-12 05:04] LABS: Arterial Base Excess iSTAT 12 MMOL/L (-2.5-2.5); Arterial Bicarbonate iSTAT 37.1 MMOL/L (20-26); Arterial O2 Saturation iSTAT 99 % (95-100); Arterial PCO2 iSTAT 49 MM HG (35-48); Arterial PO2 iSTAT 118 MM HG (80-95); Arterial Total CO2 iSTAT 39 MMO/L (23-27); Arterial pH iSTAT 7.485 (7.35-7.45)
[2021-11-12] MEDS: INSULIN LISPRO 100 UNIT/ML SUBCUT SCH ×4 (07:31→20:51)
[2021-11-12] MEDS: PANTOPRAZOLE 40 MG TABLET PO SCH (08:16)
[2021-11-12] MEDS: FOLIC ACID 1 MG TABLET PO SCH (08:16)
[2021-11-12] MEDS: buPROPion SR 150 MG TABLET PO SCH ×2 (08:16→20:51)
[2021-11-12] MEDS: METOPROLOL TARTRATE 50 MG TABLET PO SCH ×2 (08:16→20:51)
[2021-11-12] MEDS: FUROSEMIDE 40 MG/4 ML VIAL IV SCH (08:18)
[2021-11-12 09:26] LABS: INR 3.8; PT Patient Result 38.3 SECS (10.1-12.1)
[2021-11-13] MEDS: ALBUTEROL/IPRATROPIUM 3 ML NEB RESP TX SCH ×3 (01:35→13:45)
[2021-11-13 05:01] LABS: Basophils % 0.1 % (0.0-0.8); Eosinophils # 0.1 10*3/uL (0.0-0.87); Eosinophils % 1.2 % (0.00-10.9); Hematocrit 32.4 VOL% (35.7-47.0); Hemoglobin 10.5 GM/DL (12.0-16.0); Immature Granulocytes % 0.8 %; Immature Granulocytes Absolute 0.08 #; Lymphocytes # 1.6 10*3/uL (1.4-4.0); Lymphocytes % 15.3 % (21.3-54.2); Mean Corpuscular HGB Conc 32.4 GM/DL (32-36); Mean Corpuscular Volume 100.6 FL (87-102); Mean Platelet Volume 10.3 FL (9.6-12.0); Monocytes # 1.1 10*3/uL (0.11-0.8); Monocytes % 10.5 % (1.7-12.7); Neutrophils % 72.1 % (38.7-73.9); Platelet Count 398 T/CUMM (130-400); Red Blood Count 3.22 MC/CUMM (3.8-5.5); Red Cell Distribution Width 14.6 % (9.3-17.3); White Blood Count 10.6 T/CUMM (4-12)
[2021-11-13 05:07] LABS: INR 2.7; PT Patient Result 28.2 SECS (10.1-12.1)
[2021-11-13 05:14] LABS: Calcium 8.4 MG/DL (8.5-10.1); Osmolality,Calculated 284.4 MOS/KG (273-304); Potassium 3.3 MMOL/L (3.5-5.1)
[2021-11-13 07:18] VITALS: BP 98/76
[2021-11-13] MEDS: INSULIN LISPRO 100 UNIT/ML SUBCUT SCH ×2 (07:31→12:10)
[2021-11-13] MEDS: PANTOPRAZOLE 40 MG TABLET PO SCH (08:08)
[2021-11-13] MEDS: FUROSEMIDE 40 MG/4 ML VIAL IV SCH (08:08)
[2021-11-13] MEDS: FOLIC ACID 1 MG TABLET PO SCH (08:08)
[2021-11-13] MEDS: buPROPion SR 150 MG TABLET PO SCH (08:08)
[2021-11-13] MEDS: METOPROLOL TARTRATE 50 MG TABLET PO SCH (08:09)
[2021-11-13] MEDS ORDERED: POTASSIUM CHLORIDE 20 MEQ TABLET PO ONE (09:29)
[2021-11-13] MEDS ORDERED: BUDESONIDE/FORMOTEROL 160-4.5 INHALER 6 GM INH SCH (09:30)
[2021-11-13 09:35] LABS: % Iron Saturation 24.4 % (18-50)
[2021-11-13] MEDS ORDERED: ACETAMINOPHEN 325 MG TABLET PO PRN (10:14)
== END 2021-11-13 16:20 | disposition home health service (06) | DRG 189 ==
LOC: EDUNIT# → N.ED 12:08 → N.EDINP 15:07 → SUATTDRO 15:07 → N.CC 17:01
PROVIDERS: ADMIT Internal Medicine; ATTEND Internal Medicine

== ENCOUNTER 2021-11-20 12:50 | Inpatient (IN) ==
[2021-11-20] MEDS ORDERED: ALBUTEROL NEB SOLN 5 MG/ML 20 ML/BOTTLE CONT NEB SCH (13:30)
[2021-11-20 13:41] LABS: Basophils % 0.2 % (0.0-0.8); Hematocrit 30.6 VOL% (35.7-47.0); Immature Granulocytes % 0.7 %; Immature Granulocytes Absolute 0.08 #; Lymphocytes % 8.3 % (21.3-54.2); Mean Corpuscular HGB Conc 32.7 GM/DL (32-36); Mean Platelet Volume 9.8 FL (9.6-12.0); Monocytes # 1.2 10*3/uL (0.11-0.8); Neutrophils % 80.8 % (38.7-73.9); Platelet Count 288 T/CUMM (130-400); Red Blood Count 3.03 MC/CUMM (3.8-5.5); Red Cell Distribution Width 15.2 % (9.3-17.3); White Blood Count 11.9 T/CUMM (4-12)
[2021-11-20 14:00] LABS: INR 2.7; PT Patient Result 27.5 SECS (10.1-12.1); Partial Thromboplastin Time 40.4 SECS (23.7-32.9)
[2021-11-20 14:02] LABS: Arterial Base Excess iSTAT 4 MMOL/L (-2.5-2.5); Arterial O2 Saturation iSTAT 94 % (95-100); Arterial PCO2 iSTAT 44 MM HG (35-48); Arterial PO2 iSTAT 70 MM HG (80-95); Arterial Total CO2 iSTAT 30 MMO/L (23-27); Arterial pH iSTAT 7.425 (7.35-7.45)
[2021-11-20 14:03] LABS: Albumin 2.7 G/DL (3.4-5.0); Bilirubin,Total 0.7 MG/DL (0.20-1.00); Calcium 8.7 MG/DL (8.5-10.1); Osmolality,Calculated 275.8 MOS/KG (273-304); Potassium 3.3 MMOL/L (3.5-5.1); Total Protein 6.4 G/DL (6.4-8.2)
[2021-11-20] MEDS ORDERED: FUROSEMIDE 40 MG/4 ML VIAL IV STA (14:20)
[2021-11-20] MEDS ORDERED: GLUCAGON 1 MG VIAL IM PRN (14:46)
[2021-11-20] MEDS ORDERED: ONDANSETRON 4 MG/2 ML VIAL IV PRN (14:46)
[2021-11-20] MEDS ORDERED: DEXTROSE 10% 250 ML BAG IV PRN (14:46)
[2021-11-20] MEDS ORDERED: DEXTROSE 50% 25 GM/50 ML VIAL IV PRN (14:46)
[2021-11-20] MEDS: PANTOPRAZOLE 40 MG TABLET PO SCH (16:29)
[2021-11-20] MEDS ORDERED: INSULIN LISPRO 100 UNIT/ML SUBCUT SCH (16:30)
[2021-11-20 17:02] LABS: Mucus,Urine Occasional /LPF (Occasional); RBC,Urine 1 /HPF (0-4); Squamous Epithelial Cell,Urine Occasional /HPF (0-10)
[2021-11-20] MEDS: POTASSIUM CHLORIDE RIDER 10 MEQ/100 ML PREMIX IV SCH ×3 (17:02→20:39)
[2021-11-20 17:03] LABS: Bilirubin,Urine Negative (Negative); Blood, Urine Negative (Negative); Glucose,Urine (UA) Negative (Negative); Ketones,Urine Negative (Negative); Nitrite,Urine Negative (Negative); Protein,Urine Negative (Negative); Urine Appearance Clear (Clear); Urine Color Yellow (Yellow); Urine Specific Gravity < 1.005 (1.001-1.035); Urine Urobilinogen 0.2 eU/dL (<2.0)
[2021-11-20] MEDS: methylPREDNISolone SOD SUC 40 MG/1 ML VIAL IV SCH (17:10)
[2021-11-20] MEDS: ALBUTEROL/IPRATROPIUM 3 ML NEB RESP TX SCH (20:00)
[2021-11-20] MEDS: FUROSEMIDE 40 MG/4 ML VIAL IV SCH (20:31)
[2021-11-20] MEDS: METOPROLOL TARTRATE 50 MG TABLET PO SCH (20:31)
[2021-11-20] MEDS: DOXEPIN 25 MG CAPSULE PO SCH (20:31)
[2021-11-20] MEDS: buPROPion SR 150 MG TABLET PO SCH (20:31)
[2021-11-20] MEDS: DILTIAZEM CD 300 MG CAPSULE PO SCH (20:31)
[2021-11-20] MEDS: WARFARIN 5 MG TABLET PO SCH ×2 (20:32→22:00)
[2021-11-20] MEDS ORDERED: POTASSIUM CHLORIDE RIDER 10 MEQ/100 ML PREMIX IV ONE (20:35)
[2021-11-20] MEDS ORDERED: ENOXAPARIN 40 MG/0.4 ML SYRINGE SUBCUT SCH ×2 (21:00→22:00)
[2021-11-20] MEDS: BUDESONIDE/FORMOTEROL 160-4.5 INHALER 6 GM INH SCH (22:00)
[2021-11-21] MEDS: methylPREDNISolone SOD SUC 40 MG/1 ML VIAL IV SCH ×3 (00:10→20:08)
[2021-11-21] MEDS: ALBUTEROL/IPRATROPIUM 3 ML NEB RESP TX SCH ×4 (00:40→19:30)
[2021-11-21] MEDS: MORPHINE 2 MG/1 ML SYRINGE IV PRN (01:26)
[2021-11-21 03:56] LABS: Arterial Base Excess iSTAT 10 MMOL/L (-2.5-2.5); Arterial Bicarbonate iSTAT 35.1 MMOL/L (20-26); Arterial O2 Saturation iSTAT 97 % (95-100); Arterial PCO2 iSTAT 52 MM HG (35-48); Arterial PO2 iSTAT 91 MM HG (80-95); Arterial Total CO2 iSTAT 37 MMO/L (23-27); Arterial pH iSTAT 7.438 (7.35-7.45)
[2021-11-21 04:19] LABS: Basophils % 0.1 % (0.0-0.8); Hematocrit 30.8 VOL% (35.7-47.0); Hemoglobin 9.8 GM/DL (12.0-16.0); Immature Granulocytes % 0.5 %; Immature Granulocytes Absolute 0.04 #; Lymphocytes # 0.7 10*3/uL (1.4-4.0); Lymphocytes % 7.4 % (21.3-54.2); Mean Corpuscular HGB Conc 31.8 GM/DL (32-36); Mean Corpuscular Volume 102.7 FL (87-102); Mean Platelet Volume 10.6 FL (9.6-12.0); Monocytes # 0.2 10*3/uL (0.11-0.8); Monocytes % 2.7 % (1.7-12.7); Neutrophils % 89.3 % (38.7-73.9); Platelet Count 292 T/CUMM (130-400); Red Cell Distribution Width 15.1 % (9.3-17.3); White Blood Count 8.9 T/CUMM (4-12)
[2021-11-21 04:27] LABS: INR 2.7; PT Patient Result 27.8 SECS (10.1-12.1); Partial Thromboplastin Time 45.3 SECS (23.7-32.9)
[2021-11-21 04:49] LABS: Albumin 2.7 G/DL (3.4-5.0); Bilirubin,Total 0.6 MG/DL (0.20-1.00); Osmolality,Calculated 276.8 MOS/KG (273-304); Potassium 3.6 MMOL/L (3.5-5.1); Risk Ratio 2.69; Thyroid Stimulating Hormone 0.715 uIU/ml (0.358-3.74); Total Protein 6.8 G/DL (6.4-8.2)
[2021-11-21] MEDS: POTASSIUM CHLORIDE 20 MEQ TABLET PO PRN ×2 (05:53→10:54)
[2021-11-21] MEDS: DILTIAZEM CD 300 MG CAPSULE PO SCH (08:29)
[2021-11-21] MEDS: FOLIC ACID 1 MG TABLET PO SCH (08:32)
[2021-11-21] MEDS: FUROSEMIDE 40 MG/4 ML VIAL IV SCH ×2 (08:32→20:08)
[2021-11-21] MEDS: PANTOPRAZOLE 40 MG TABLET PO SCH (08:33)
[2021-11-21] MEDS: METOPROLOL TARTRATE 50 MG TABLET PO SCH ×2 (08:33→20:08)
[2021-11-21] MEDS: buPROPion SR 150 MG TABLET PO SCH ×2 (08:33→20:08)
[2021-11-21] MEDS: BUDESONIDE/FORMOTEROL 160-4.5 INHALER 6 GM INH SCH ×2 (08:33→20:18)
[2021-11-21] MEDS: SPIRONOLACTONE 25 MG TABLET PO SCH (13:37)
[2021-11-21] MEDS: LEVOFLOXACIN INJ 750 MG/150 ML PREMIX IV SCH (15:26)
[2021-11-21] MEDS: INSULIN LISPRO 100 UNIT/ML SUBCUT SCH ×2 (17:37→23:16)
[2021-11-21] MEDS ORDERED: WARFARIN 7.5 MG TABLET PO SCH (18:00)
[2021-11-21] MEDS: DOXEPIN 25 MG CAPSULE PO SCH (20:08)
[2021-11-22] MEDS: ALBUTEROL/IPRATROPIUM 3 ML NEB RESP TX SCH ×4 (01:40→19:39)
[2021-11-22 03:33] LABS: Basophils % 0.2 % (0.0-0.8); Hemoglobin 9.6 GM/DL (12.0-16.0); Immature Granulocytes % 0.8 %; Lymphocytes # 0.7 10*3/uL (1.4-4.0); Lymphocytes % 5.4 % (21.3-54.2); Mean Corpuscular Volume 102.4 FL (87-102); Mean Platelet Volume 10.1 FL (9.6-12.0); Monocytes # 0.6 10*3/uL (0.11-0.8); Monocytes % 4.2 % (1.7-12.7); Neutrophils % 89.4 % (38.7-73.9); Platelet Count 283 T/CUMM (130-400); Red Blood Count 2.93 MC/CUMM (3.8-5.5); White Blood Count 13.3 T/CUMM (4-12)
[2021-11-22 04:04] LABS: Albumin 2.4 G/DL (3.4-5.0); Bilirubin,Total 0.5 MG/DL (0.20-1.00); Calcium 8.8 MG/DL (8.5-10.1); Osmolality,Calculated 285.5 MOS/KG (273-304); Potassium 3.7 MMOL/L (3.5-5.1); Total Protein 6.3 G/DL (6.4-8.2)
[2021-11-22 05:17] LABS: ABG Base Excess 9.9 MMOL/L (-2.5-2.5); ABG HCO3 33.6 MMOL/L (20-26); ABG Oxygen Saturation 97.1 % (95-100); ABG PCO2 45.2 MM HG (35-48); ABG PH 7.489 (7.35-7.45); ABG TCO2 31.8 MMOL/L (23-27)
[2021-11-22] MEDS: INSULIN LISPRO 100 UNIT/ML SUBCUT SCH ×4 (05:32→23:19)
[2021-11-22] MEDS: POTASSIUM CHLORIDE 20 MEQ TABLET PO PRN (05:33)
[2021-11-22] MEDS: buPROPion SR 150 MG TABLET PO SCH ×2 (08:58→21:37)
[2021-11-22] MEDS: METOPROLOL TARTRATE 50 MG TABLET PO SCH ×2 (08:59→21:37)
[2021-11-22] MEDS: FOLIC ACID 1 MG TABLET PO SCH (08:59)
[2021-11-22] MEDS: DILTIAZEM CD 300 MG CAPSULE PO SCH (08:59)
[2021-11-22] MEDS: SPIRONOLACTONE 25 MG TABLET PO SCH (08:59)
[2021-11-22] MEDS: PANTOPRAZOLE 40 MG TABLET PO SCH (08:59)
[2021-11-22] MEDS: methylPREDNISolone SOD SUC 40 MG/1 ML VIAL IV SCH ×2 (09:01→21:38)
[2021-11-22] MEDS: FUROSEMIDE 40 MG/4 ML VIAL IV SCH ×2 (09:02→21:37)
[2021-11-22] MEDS: BUDESONIDE/FORMOTEROL 160-4.5 INHALER 6 GM INH SCH ×2 (09:22→21:21)
[2021-11-22] MEDS: LEVOFLOXACIN INJ 750 MG/150 ML PREMIX IV SCH (15:41)
[2021-11-22] MEDS: MORPHINE 2 MG/1 ML SYRINGE IV PRN (16:15)
[2021-11-22] MEDS: WARFARIN 5 MG TABLET PO SCH (18:25)
[2021-11-22] MEDS: ALPRAZolam 0.5 MG TABLET PO PRN (18:25)
[2021-11-22] MEDS ORDERED: DEXMEDETOMIDINE 200 MCG in SODIUM CHLORIDE 0.9% 98 ML IV PRN (19:21)
[2021-11-22] MEDS ORDERED: DEXMEDETOMIDINE 400 MCG in SODIUM CHLORIDE 0.9% 96 ML IV PRN (20:00)
[2021-11-22] MEDS ORDERED: ETOMIDATE 20 MG/10 ML VIAL IV ONE ×3 (20:22→20:45)
[2021-11-22] MEDS ORDERED: ROCURONIUM 100 MG/10 ML VIAL IV ONE ×2 (20:22→20:30)
[2021-11-22 21:30] LABS: Arterial Base Excess iSTAT 15 MMOL/L (-2.5-2.5); Arterial Bicarbonate iSTAT 41.7 MMOL/L (20-26); Arterial O2 Saturation iSTAT 100 % (95-100); Arterial PCO2 iSTAT 60 MM HG (35-48); Arterial PO2 iSTAT 504 MM HG (80-95); Arterial Total CO2 iSTAT 43 MMO/L (23-27); Arterial pH iSTAT 7.454 (7.35-7.45)
[2021-11-22] MEDS: DOXEPIN 25 MG CAPSULE PO SCH (21:37)
[2021-11-23] MEDS: ALBUTEROL/IPRATROPIUM 3 ML NEB RESP TX SCH ×5 (02:10→23:49)
[2021-11-23 03:18] LABS: Arterial Base Excess iSTAT 12 MMOL/L (-2.5-2.5); Arterial Bicarbonate iSTAT 38.3 MMOL/L (20-26); Arterial O2 Saturation iSTAT 100 % (95-100); Arterial PCO2 iSTAT 56 MM HG (35-48); Arterial PO2 iSTAT 248 MM HG (80-95); Arterial Total CO2 iSTAT 40 MMO/L (23-27); Arterial pH iSTAT 7.446 (7.35-7.45)
[2021-11-23 04:03] LABS: Basophils % 0.1 % (0.0-0.8); Hematocrit 29.7 VOL% (35.7-47.0); Hemoglobin 9.4 GM/DL (12.0-16.0); Immature Granulocytes % 0.4 %; Immature Granulocytes Absolute 0.04 #; Lymphocytes # 0.9 10*3/uL (1.4-4.0); Lymphocytes % 9.6 % (21.3-54.2); Mean Corpuscular HGB Conc 31.6 GM/DL (32-36); Mean Corpuscular Volume 103.1 FL (87-102); Mean Platelet Volume 10.8 FL (9.6-12.0); Monocytes # 0.5 10*3/uL (0.11-0.8); Monocytes % 5.2 % (1.7-12.7); Neutrophils % 84.7 % (38.7-73.9); Platelet Count 196 T/CUMM (130-400); Red Blood Count 2.88 MC/CUMM (3.8-5.5); Red Cell Distribution Width 14.7 % (9.3-17.3); White Blood Count 9.4 T/CUMM (4-12)
[2021-11-23 04:40] LABS: Albumin 2.5 G/DL (3.4-5.0); Bilirubin,Total 0.7 MG/DL (0.20-1.00); Calcium 9.3 MG/DL (8.5-10.1); Osmolality,Calculated 284.8 MOS/KG (273-304); Potassium 3.9 MMOL/L (3.5-5.1); Total Protein 6.4 G/DL (6.4-8.2)
[2021-11-23] MEDS: INSULIN LISPRO 100 UNIT/ML SUBCUT SCH ×4 (05:23→23:58)
[2021-11-23 06:36] LABS: PT Patient Result 68.2 SECS (10.1-12.1)
[2021-11-23 06:39] LABS: INR 7.1
[2021-11-23] MEDS ORDERED: SODIUM CHLORIDE 0.9% 1,000 ML IV PRN (06:55)
[2021-11-23] MEDS: FOLIC ACID 1 MG TABLET PO SCH (08:45)
[2021-11-23] MEDS: METOPROLOL TARTRATE 50 MG TABLET PO SCH ×2 (08:45→21:35)
[2021-11-23] MEDS: methylPREDNISolone SOD SUC 40 MG/1 ML VIAL IV SCH ×2 (08:45→08:48)
[2021-11-23] MEDS: FUROSEMIDE 40 MG/4 ML VIAL IV SCH (08:45)
[2021-11-23] MEDS: DILTIAZEM 60 MG TABLET PO SCH ×3 (08:45→20:09)
[2021-11-23] MEDS: PANTOPRAZOLE 40 MG VIAL IV SCH (08:45)
[2021-11-23] MEDS: buPROPion SR 150 MG TABLET PO SCH (08:45)
[2021-11-23] MEDS: SPIRONOLACTONE 50 MG TABLET PO SCH (08:51)
[2021-11-23] MEDS: BUDESONIDE/FORMOTEROL 160-4.5 INHALER 6 GM INH SCH ×2 (08:59→20:22)
[2021-11-23] MEDS: LEVOFLOXACIN INJ 750 MG/150 ML PREMIX IV SCH (15:56)
[2021-11-23] MEDS: DOXEPIN 25 MG CAPSULE PO SCH (20:09)
[2021-11-23] MEDS: buPROPion 75 MG TABLET PO SCH (20:09)
[2021-11-23] MEDS: ALPRAZolam 0.5 MG TABLET PO PRN (20:13)
[2021-11-23] MEDS: MORPHINE 2 MG/1 ML SYRINGE IV PRN (20:14)
[2021-11-24] MEDS: MORPHINE 2 MG/1 ML SYRINGE IV PRN (00:43)
[2021-11-24] MEDS ORDERED: VECURONIUM 10 MG VIAL IV ONE (01:07)
[2021-11-24] MEDS ORDERED: ETOMIDATE 20 MG/10 ML VIAL IV ONE ×2 (01:07→01:27)
[2021-11-24] MEDS: MIDAZOLAM 100 MG in SODIUM CHLORIDE 0.9% 80 ML IV PRN ×2 (01:35→14:30)
[2021-11-24] MEDS: DILTIAZEM 60 MG TABLET PO SCH ×4 (02:34→20:19)
[2021-11-24] MEDS: PIPERACILLIN/TAZOBACTAM 3,375 MG in SODIUM CHLORIDE 0.9% 100 ML IV SCH ×3 (02:55→17:38)
[2021-11-24 04:38] LABS: Basophils % 0.1 % (0.0-0.8); Hematocrit 28.7 VOL% (35.7-47.0); Hemoglobin 9.3 GM/DL (12.0-16.0); Immature Granulocytes % 1.1 %; Immature Granulocytes Absolute 0.08 #; Lymphocytes # 1.1 10*3/uL (1.4-4.0); Lymphocytes % 15.2 % (21.3-54.2); Mean Corpuscular HGB Conc 32.4 GM/DL (32-36); Mean Corpuscular Volume 99.7 FL (87-102); Monocytes # 0.8 10*3/uL (0.11-0.8); Neutrophils % 72.6 % (38.7-73.9); Platelet Count 271 T/CUMM (130-400); Red Blood Count 2.88 MC/CUMM (3.8-5.5); Red Cell Distribution Width 14.5 % (9.3-17.3); White Blood Count 7.3 T/CUMM (4-12)
[2021-11-24 04:56] LABS: PT Patient Result 61.8 SECS (10.1-12.1)
[2021-11-24 04:58] LABS: INR 6.4
[2021-11-24 05:03] LABS: Arterial Base Excess iSTAT 15 MMOL/L (-2.5-2.5); Arterial O2 Saturation iSTAT 100 % (95-100); Arterial PCO2 iSTAT 40 MM HG (35-48); Arterial PO2 iSTAT 143 MM HG (80-95); Arterial Total CO2 iSTAT 39 MMO/L (23-27)
[2021-11-24 05:07] LABS: Albumin 2.6 G/DL (3.4-5.0); Bilirubin,Total 0.9 MG/DL (0.20-1.00); Calcium 9.2 MG/DL (8.5-10.1); Osmolality,Calculated 289.5 MOS/KG (273-304)
[2021-11-24] MEDS: POTASSIUM BICARB EFFERVESCENT 20 MEQ TAB.EFF PO PRN ×4 (05:49→15:55)
[2021-11-24] MEDS: INSULIN LISPRO 100 UNIT/ML SUBCUT SCH ×3 (05:49→17:37)
[2021-11-24] MEDS: ALBUTEROL/IPRATROPIUM 3 ML NEB RESP TX SCH ×3 (06:55→19:41)
[2021-11-24] MEDS: SPIRONOLACTONE 50 MG TABLET PO SCH (09:00)
[2021-11-24] MEDS: METOPROLOL TARTRATE 50 MG TABLET PO SCH ×2 (09:01→20:20)
[2021-11-24] MEDS: buPROPion 75 MG TABLET PO SCH ×2 (09:01→20:19)
[2021-11-24] MEDS: FOLIC ACID 1 MG TABLET PO SCH (09:02)
[2021-11-24] MEDS: BUDESONIDE/FORMOTEROL 160-4.5 INHALER 6 GM INH SCH ×2 (09:03→20:18)
[2021-11-24] MEDS: methylPREDNISolone SOD SUC 40 MG/1 ML VIAL IV SCH (09:03)
[2021-11-24] MEDS: PANTOPRAZOLE 40 MG VIAL IV SCH (09:05)
[2021-11-24] MEDS ORDERED: DEXTROSE 50% 25 GM/50 ML VIAL IV PRN (14:10)
[2021-11-24] MEDS ORDERED: GLUCAGON 1 MG VIAL IM PRN (14:10)
[2021-11-24] MEDS: LEVOFLOXACIN INJ 750 MG/150 ML PREMIX IV SCH (15:33)
[2021-11-24] MEDS: DOXEPIN 25 MG CAPSULE PO SCH (20:18)
[2021-11-25] MEDS: ALBUTEROL/IPRATROPIUM 3 ML NEB RESP TX SCH ×5 (00:03→23:55)
[2021-11-25] MEDS: INSULIN LISPRO 100 UNIT/ML SUBCUT SCH ×5 (00:45→23:45)
[2021-11-25] MEDS: DILTIAZEM 60 MG TABLET PO SCH ×4 (02:11→20:25)
[2021-11-25] MEDS: PIPERACILLIN/TAZOBACTAM 3,375 MG in SODIUM CHLORIDE 0.9% 100 ML IV SCH ×3 (02:34→17:30)
[2021-11-25 02:41] LABS: Hematocrit 29.4 VOL% (35.7-47.0); Hemoglobin 9.2 GM/DL (12.0-16.0); Immature Granulocytes Absolute 0.06 #; Lymphocytes # 1.2 10*3/uL (1.4-4.0); Mean Corpuscular HGB Conc 31.3 GM/DL (32-36); Mean Corpuscular Volume 100.3 FL (87-102); Monocytes # 0.7 10*3/uL (0.11-0.8); Monocytes % 11.6 % (1.7-12.7); Neutrophils % 67.4 % (38.7-73.9); Platelet Count 253 T/CUMM (130-400); Red Blood Count 2.93 MC/CUMM (3.8-5.5); Red Cell Distribution Width 14.4 % (9.3-17.3); White Blood Count 6.1 T/CUMM (4-12)
[2021-11-25 02:49] LABS: INR 4.6
[2021-11-25] MEDS: MIDAZOLAM 100 MG in SODIUM CHLORIDE 0.9% 80 ML IV PRN ×2 (02:56→16:02)
[2021-11-25 03:09] LABS: Albumin 2.5 G/DL (3.4-5.0); Bilirubin,Total 0.5 MG/DL (0.20-1.00); Calcium 8.9 MG/DL (8.5-10.1); Osmolality,Calculated 285.5 MOS/KG (273-304); Potassium 3.9 MMOL/L (3.5-5.1); Total Protein 5.8 G/DL (6.4-8.2)
[2021-11-25 04:12] LABS: Arterial Base Excess iSTAT 11 MMOL/L (-2.5-2.5); Arterial Bicarbonate iSTAT 35.6 MMOL/L (20-26); Arterial O2 Saturation iSTAT 100 % (95-100); Arterial PCO2 iSTAT 47 MM HG (35-48); Arterial PO2 iSTAT 169 MM HG (80-95); Arterial Total CO2 iSTAT 37 MMO/L (23-27); Arterial pH iSTAT 7.489 (7.35-7.45)
[2021-11-25] MEDS: POTASSIUM BICARB EFFERVESCENT 20 MEQ TAB.EFF PO PRN (04:18)
[2021-11-25] MEDS: buPROPion 75 MG TABLET PO SCH ×2 (08:29→20:24)
[2021-11-25] MEDS: FOLIC ACID 1 MG TABLET PO SCH (08:30)
[2021-11-25] MEDS: SPIRONOLACTONE 50 MG TABLET PO SCH (08:30)
[2021-11-25] MEDS: PANTOPRAZOLE 40 MG VIAL IV SCH (08:31)
[2021-11-25] MEDS: METOPROLOL TARTRATE 50 MG TABLET PO SCH ×2 (08:31→20:24)
[2021-11-25] MEDS: methylPREDNISolone SOD SUC 40 MG/1 ML VIAL IV SCH (08:34)
[2021-11-25] MEDS: BUDESONIDE/FORMOTEROL 160-4.5 INHALER 6 GM INH SCH ×2 (08:37→20:16)
[2021-11-25] MEDS: LEVOFLOXACIN INJ 750 MG/150 ML PREMIX IV SCH (15:01)
[2021-11-25] MEDS: INSULIN GLARGINE 100 UNIT/ML SUBCUT SCH (20:16)
[2021-11-25] MEDS: DOXEPIN 25 MG CAPSULE PO SCH (20:24)
[2021-11-26] MEDS: PIPERACILLIN/TAZOBACTAM 3,375 MG in SODIUM CHLORIDE 0.9% 100 ML IV SCH ×3 (02:29→18:11)
[2021-11-26] MEDS: DILTIAZEM 60 MG TABLET PO SCH ×2 (02:29→09:03)
[2021-11-26 04:34] LABS: Arterial Base Excess iSTAT 4 MMOL/L (-2.5-2.5); Arterial Bicarbonate iSTAT 29.5 MMOL/L (20-26); Arterial O2 Saturation iSTAT 100 % (95-100); Arterial PCO2 iSTAT 49 MM HG (35-48); Arterial PO2 iSTAT 186 MM HG (80-95); Arterial Total CO2 iSTAT 31 MMO/L (23-27); Arterial pH iSTAT 7.384 (7.35-7.45)
[2021-11-26 05:02] LABS: Basophils % 0.2 % (0.0-0.8); Eosinophils % 0.2 % (0.00-10.9); Hematocrit 29.8 VOL% (35.7-47.0); Hemoglobin 9.2 GM/DL (12.0-16.0); Immature Granulocytes % 1.7 %; Immature Granulocytes Absolute 0.14 #; Lymphocytes # 1.7 10*3/uL (1.4-4.0); Lymphocytes % 19.7 % (21.3-54.2); Mean Corpuscular HGB Conc 30.9 GM/DL (32-36); Mean Corpuscular Volume 103.8 FL (87-102); Mean Platelet Volume 10.3 FL (9.6-12.0); Monocytes # 0.8 10*3/uL (0.11-0.8); Monocytes % 8.9 % (1.7-12.7); Neutrophils % 69.3 % (38.7-73.9); Platelet Count 246 T/CUMM (130-400); Red Blood Count 2.87 MC/CUMM (3.8-5.5); Red Cell Distribution Width 14.6 % (9.3-17.3); White Blood Count 8.4 T/CUMM (4-12)
[2021-11-26 05:13] LABS: INR 2.3; PT Patient Result 23.7 SECS (10.1-12.1)
[2021-11-26 05:24] LABS: Calcium 8.6 MG/DL (8.5-10.1); Osmolality,Calculated 290.4 MOS/KG (273-304); Potassium 4.2 MMOL/L (3.5-5.1)
[2021-11-26] MEDS: INSULIN LISPRO 100 UNIT/ML SUBCUT SCH ×4 (05:46→23:56)
[2021-11-26] MEDS: MIDAZOLAM 100 MG in SODIUM CHLORIDE 0.9% 80 ML IV PRN (05:46)
[2021-11-26] MEDS: ALBUTEROL/IPRATROPIUM 3 ML NEB RESP TX SCH ×3 (07:04→19:14)
[2021-11-26] MEDS: PANTOPRAZOLE 40 MG VIAL IV SCH (08:58)
[2021-11-26] MEDS: methylPREDNISolone SOD SUC 40 MG/1 ML VIAL IV SCH (09:02)
[2021-11-26] MEDS: FOLIC ACID 1 MG TABLET PO SCH (09:03)
[2021-11-26] MEDS: SPIRONOLACTONE 50 MG TABLET PO SCH (09:03)
[2021-11-26 09:04] VITALS: BP 121/76
[2021-11-26] MEDS: buPROPion 75 MG TABLET PO SCH ×2 (09:04→20:58)
[2021-11-26] MEDS: BUDESONIDE/FORMOTEROL 160-4.5 INHALER 6 GM INH SCH ×2 (09:20→21:00)
[2021-11-26] MEDS: POLYETHYLENE GLYCOL POWDER 17 GM PACK PO SCH (13:44)
[2021-11-26] MEDS: LEVOFLOXACIN INJ 750 MG/150 ML PREMIX IV SCH (15:24)
[2021-11-26] MEDS: WARFARIN 5 MG TABLET PO SCH (18:11)
[2021-11-26] MEDS: DOXEPIN 25 MG CAPSULE PO SCH (20:59)
[2021-11-26] MEDS: INSULIN GLARGINE 100 UNIT/ML SUBCUT SCH (20:59)
[2021-11-26] MEDS: METOPROLOL TARTRATE 25 MG TABLET NG SCH (20:59)
[2021-11-26] MEDS: ALPRAZolam 0.5 MG TABLET PO PRN (23:56)
[2021-11-27] MEDS: ALBUTEROL/IPRATROPIUM 3 ML NEB RESP TX SCH ×3 (00:14→13:05)
[2021-11-27] MEDS: PIPERACILLIN/TAZOBACTAM 3,375 MG in SODIUM CHLORIDE 0.9% 100 ML IV SCH ×3 (03:33→18:58)
[2021-11-27 03:50] LABS: Basophils % 0.2 % (0.0-0.8); Immature Granulocytes % 2.5 %; Immature Granulocytes Absolute 0.21 #; Lymphocytes # 1.1 10*3/uL (1.4-4.0); Lymphocytes % 13.3 % (21.3-54.2); Mean Corpuscular HGB Conc 31.3 GM/DL (32-36); Mean Corpuscular Volume 103.9 FL (87-102); Mean Platelet Volume 10.4 FL (9.6-12.0); Monocytes # 0.7 10*3/uL (0.11-0.8); Monocytes % 7.8 % (1.7-12.7); Neutrophils % 76.2 % (38.7-73.9); Platelet Count 255 T/CUMM (130-400); Red Blood Count 3.08 MC/CUMM (3.8-5.5); Red Cell Distribution Width 14.6 % (9.3-17.3); White Blood Count 8.6 T/CUMM (4-12)
[2021-11-27 04:02] LABS: INR 1.6; PT Patient Result 16.7 SECS (10.1-12.1)
[2021-11-27 04:03] LABS: Arterial Base Excess iSTAT 0 MMOL/L (-2.5-2.5); Arterial Bicarbonate iSTAT 25.9 MMOL/L (20-26); Arterial O2 Saturation iSTAT 98 % (95-100); Arterial PCO2 iSTAT 47 MM HG (35-48); Arterial PO2 iSTAT 120 MM HG (80-95); Arterial Total CO2 iSTAT 27 MMO/L (23-27); Arterial pH iSTAT 7.347 (7.35-7.45)
[2021-11-27 04:07] LABS: Calcium 8.8 MG/DL (8.5-10.1); Osmolality,Calculated 287.3 MOS/KG (273-304); Potassium 4.4 MMOL/L (3.5-5.1)
[2021-11-27] MEDS: INSULIN LISPRO 100 UNIT/ML SUBCUT SCH ×3 (05:37→18:58)
[2021-11-27] MEDS: methylPREDNISolone SOD SUC 40 MG/1 ML VIAL IV SCH (08:28)
[2021-11-27] MEDS: SPIRONOLACTONE 50 MG TABLET PO SCH (08:29)
[2021-11-27] MEDS: METOPROLOL TARTRATE 25 MG TABLET NG SCH (08:29)
[2021-11-27] MEDS: buPROPion 75 MG TABLET PO SCH (08:29)
[2021-11-27] MEDS: FOLIC ACID 1 MG TABLET PO SCH (08:29)
[2021-11-27] MEDS: PANTOPRAZOLE 40 MG VIAL IV SCH (08:30)
[2021-11-27] MEDS: POLYETHYLENE GLYCOL POWDER 17 GM PACK PO SCH (08:30)
[2021-11-27] MEDS: BUDESONIDE/FORMOTEROL 160-4.5 INHALER 6 GM INH SCH (08:35)
[2021-11-27] MEDS ORDERED: ENOXAPARIN 100 MG/ML SYRINGE SUBCUT SCH (10:00)
[2021-11-27] MEDS ORDERED: POLYETHYLENE GLYCOL POWDER 17 GM PACK PO SCH (12:00)
[2021-11-27] MEDS: LEVOFLOXACIN INJ 750 MG/150 ML PREMIX IV SCH (15:15)
[2021-11-27] MEDS ORDERED: HEPARIN DRIP 25,000 UNITS/500 ML PREMIX IV SCH ×2 (18:00)
[2021-11-27] MEDS: WARFARIN 5 MG TABLET PO SCH (18:58)
== END 2021-11-27 17:50 | DRG 207 ==
LOC: N.ED 12:50 → SUATTDRO 14:46 → N.EDINP 14:46 → N.3E 16:02 → N.CC 19:21
PROVIDERS: ADMIT Internal Medicine; ATTEND Family Medicine

== ENCOUNTER 2021-12-26 09:58 | Inpatient (IN) ==
[2021-12-26] MEDS ORDERED: methylPREDNISolone SOD SUC 125 MG/2 ML VIAL IV STA (10:14)
[2021-12-26] MEDS ORDERED: FUROSEMIDE 40 MG/4 ML VIAL IV STA (10:17)
[2021-12-26 10:27] LABS: Basophils % 0.2 % (0.0-0.8); Hematocrit 29.8 VOL% (35.7-47.0); Hemoglobin 9.1 GM/DL (12.0-16.0); Immature Granulocytes % 2.1 %; Immature Granulocytes Absolute 0.38 #; Lymphocytes # 2.8 10*3/uL (1.4-4.0); Lymphocytes % 15.8 % (21.3-54.2); Mean Corpuscular HGB Conc 30.5 GM/DL (32-36); Mean Corpuscular Volume 101.7 FL (87-102); Mean Platelet Volume 10.1 FL (9.6-12.0); Monocytes # 1.2 10*3/uL (0.11-0.8); Monocytes % 6.9 % (1.7-12.7); NRBC # 0.06 10*3/uL; Platelet Count 331 T/CUMM (130-400); Red Blood Count 2.93 MC/CUMM (3.8-5.5); Red Cell Distribution Width 15.6 % (9.3-17.3)
[2021-12-26] MEDS ORDERED: MORPHINE 2 MG/1 ML SYRINGE IV STA (10:28)
[2021-12-26] MEDS ORDERED: ALBUTEROL NEB SOLN 5 MG/ML 20 ML/BOTTLE CONT NEB SCH (10:30)
[2021-12-26] MEDS ORDERED: MEROPENEM 500 MG in SODIUM CHLORIDE 0.9% 100 ML IV ONE (10:46)
[2021-12-26 10:51] LABS: Arterial Base Excess iSTAT 9 MMOL/L (-2.5-2.5); Arterial Bicarbonate iSTAT 32.9 MMOL/L (20-26); Arterial O2 Saturation iSTAT 87 % (95-100); Arterial PCO2 iSTAT 41 MM HG (35-48); Arterial PO2 iSTAT 48 MM HG (80-95); Arterial Total CO2 iSTAT 34 MMO/L (23-27); Arterial pH iSTAT 7.516 (7.35-7.45)
[2021-12-26 11:11] LABS: Albumin 2.5 G/DL (3.4-5.0); Bilirubin,Total 0.5 MG/DL (0.20-1.00); Calcium 8.9 MG/DL (8.5-10.1); Osmolality,Calculated 282.4 MOS/KG (273-304); Potassium 2.7 MMOL/L (3.5-5.1); Total Protein 6.9 G/DL (6.4-8.2)
[2021-12-26 11:21] LABS: PT Patient Result 103.2 SECS (10.1-12.1); Partial Thromboplastin Time 61.1 SECS (23.7-32.9)
[2021-12-26] MEDS ORDERED: POTASSIUM CHLORIDE 20 MEQ TABLET PO ONE (11:36)
[2021-12-26 11:39] LABS: INR 11.1
[2021-12-26] MEDS ORDERED: ALPRAZolam 0.5 MG TABLET PO PRN (11:40)
[2021-12-26] MEDS ORDERED: TEMAZEPAM 15 MG CAPSULE PO PRN (11:40)
[2021-12-26] MEDS ORDERED: DEXTROSE 10% 250 ML BAG IV PRN (11:42)
[2021-12-26] MEDS ORDERED: GLUCAGON 1 MG VIAL IM PRN (11:42)
[2021-12-26] MEDS: INSULIN LISPRO 100 UNIT/ML SUBCUT SCH ×2 (12:28→17:54)
[2021-12-26] MEDS: POTASSIUM CHLORIDE RIDER 10 MEQ/100 ML PREMIX IV SCH ×6 (12:37→22:41)
[2021-12-26] MEDS: ALBUTEROL/IPRATROPIUM 3 ML NEB RESP TX SCH ×2 (13:50→19:35)
[2021-12-26 15:17] LABS: Protein,Urine Negative (Negative); Urine Appearance Clear (Clear); Urine Color Yellow (Yellow); Urine pH 5.5 (4.5-8.0)
[2021-12-26 15:18] LABS: Bilirubin,Urine Negative (Negative); Blood, Urine Trace mg/dL (Negative); Glucose,Urine (UA) Negative (Negative); Ketones,Urine Negative (Negative); Nitrite,Urine Negative (Negative); Urine Urobilinogen 0.2 eU/dL (<2.0)
[2021-12-26 15:19] LABS: Bacteria,Urine Occasional /HPF (Few); Mucus,Urine Occasional /LPF (Occasional); RBC,Urine 2 /HPF (0-4)
[2021-12-26] MEDS: VANCOMYCIN INJ 1,500 MG in SODIUM CHLORIDE 0.9% 500 ML IV SCH (15:28)
[2021-12-26] MEDS: MORPHINE 2 MG/1 ML SYRINGE IV PRN (16:32)
[2021-12-26] MEDS: MEROPENEM 500 MG in SODIUM CHLORIDE 0.9% 100 ML IV SCH ×2 (16:36→23:52)
[2021-12-26] MEDS: FUROSEMIDE 40 MG/4 ML VIAL IV SCH (17:56)
[2021-12-26] MEDS: buPROPion SR 150 MG TABLET PO SCH (20:32)
[2021-12-26] MEDS: METOPROLOL TARTRATE 25 MG TABLET NG SCH (20:32)
[2021-12-26] MEDS: BUDESONIDE/FORMOTEROL 160-4.5 INHALER 6 GM INH SCH (20:33)
[2021-12-26] MEDS ORDERED: DOXEPIN 25 MG CAPSULE PO SCH (21:00)
[2021-12-27] MEDS: ONDANSETRON 4 MG/2 ML VIAL IV PRN ×4 (00:03→20:52)
[2021-12-27] MEDS: MORPHINE 2 MG/1 ML SYRINGE IV PRN ×7 (00:04→23:55)
[2021-12-27] MEDS: INSULIN LISPRO 100 UNIT/ML SUBCUT SCH ×4 (00:35→17:39)
[2021-12-27] MEDS: ALBUTEROL/IPRATROPIUM 3 ML NEB RESP TX SCH ×4 (00:51→19:38)
[2021-12-27] MEDS: FUROSEMIDE 40 MG/4 ML VIAL IV SCH ×3 (01:51→17:40)
[2021-12-27] MEDS: VANCOMYCIN INJ 1,500 MG in SODIUM CHLORIDE 0.9% 500 ML IV SCH ×2 (03:50→15:06)
[2021-12-27 04:17] LABS: Basophils % 0.1 % (0.0-0.8); Hematocrit 23.9 VOL% (35.7-47.0); Hemoglobin 7.6 GM/DL (12.0-16.0); Immature Granulocytes % 1.2 %; Immature Granulocytes Absolute 0.25 #; Lymphocytes # 1.7 10*3/uL (1.4-4.0); Lymphocytes % 8.3 % (21.3-54.2); Mean Corpuscular HGB Conc 31.8 GM/DL (32-36); Mean Corpuscular Volume 99.2 FL (87-102); Mean Platelet Volume 10.1 FL (9.6-12.0); Monocytes # 1.3 10*3/uL (0.11-0.8); Monocytes % 6.6 % (1.7-12.7); NRBC # 0.05 10*3/uL; Neutrophils % 83.8 % (38.7-73.9); Platelet Count 293 T/CUMM (130-400); Red Blood Count 2.41 MC/CUMM (3.8-5.5); Red Cell Distribution Width 15.8 % (9.3-17.3); White Blood Count 20.1 T/CUMM (4-12)
[2021-12-27 04:35] LABS: Albumin 2.3 G/DL (3.4-5.0); Bilirubin,Direct 0.21 MG/DL (0.0-0.20); Bilirubin,Indirect 0.4 MG/DL (0.0-1.0); Bilirubin,Total 0.6 MG/DL (0.20-1.00); Osmolality,Calculated 282.4 MOS/KG (273-304); Potassium 3.3 MMOL/L (3.5-5.1); Total Protein 6.6 G/DL (6.4-8.2)
[2021-12-27 04:41] LABS: PT Patient Result 96.1 SECS (10.1-12.1)
[2021-12-27 04:43] LABS: INR 10.3
[2021-12-27 04:59] LABS: Arterial Base Excess iSTAT 16 MMOL/L (-2.5-2.5); Arterial Bicarbonate iSTAT 41.3 MMOL/L (20-26); Arterial O2 Saturation iSTAT 74 % (95-100); Arterial PCO2 iSTAT 54 MM HG (35-48); Arterial PO2 iSTAT 37 MM HG (80-95); Arterial Total CO2 iSTAT 43 MMO/L (23-27); Arterial pH iSTAT 7.494 (7.35-7.45)
[2021-12-27 05:37] LABS: Lymphocytes 7 % (20-55); Platelet Estimate Normal; Total Cells Counted 100
[2021-12-27] MEDS: MEROPENEM 500 MG in SODIUM CHLORIDE 0.9% 100 ML IV SCH ×3 (05:43→17:02)
[2021-12-27] MEDS: POTASSIUM CHLORIDE RIDER 10 MEQ/100 ML PREMIX IV SCH ×2 (06:05→07:45)
[2021-12-27] MEDS: methylPREDNISolone SOD SUC 40 MG/1 ML VIAL IV SCH ×2 (07:30→15:33)
[2021-12-27] MEDS: METOPROLOL TARTRATE 25 MG TABLET NG SCH (07:50)
[2021-12-27] MEDS: buPROPion SR 150 MG TABLET PO SCH (07:50)
[2021-12-27] MEDS ORDERED: FOLIC ACID 1 MG TABLET PO SCH (09:00)
[2021-12-27] MEDS ORDERED: POLYETHYLENE GLYCOL POWDER 17 GM PACK PO SCH (09:00)
[2021-12-27] MEDS: BUDESONIDE/FORMOTEROL 160-4.5 INHALER 6 GM INH SCH ×2 (09:00→21:09)
[2021-12-27] MEDS ORDERED: SPIRONOLACTONE 50 MG TABLET PO SCH (09:00)
[2021-12-27] MEDS ORDERED: DILTIAZEM CD 300 MG CAPSULE PO SCH (09:00)
[2021-12-27] MEDS ORDERED: PHYTONADIONE 5 MG/5 ML ORAL.SYR PO STA (11:04)
[2021-12-27] MEDS: DEXMEDETOMIDINE 400 MCG in SODIUM CHLORIDE 0.9% 96 ML IV PRN ×2 (14:15→21:05)
[2021-12-27] MEDS ORDERED: LORazepam 2 MG/1 ML VIAL IV PRN (16:40)
[2021-12-27 18:15] VITALS: BP 85/47
[2021-12-27] MEDS: LORazepam 2 MG/1 ML VIAL IV PRN ×2 (20:51→23:55)
[2021-12-28] MEDS: MEROPENEM 500 MG in SODIUM CHLORIDE 0.9% 100 ML IV SCH (00:03)
[2021-12-28] MEDS: INSULIN LISPRO 100 UNIT/ML SUBCUT SCH (00:03)
[2021-12-28] MEDS: methylPREDNISolone SOD SUC 40 MG/1 ML VIAL IV SCH (00:03)
== END 2021-12-28 00:03 | disposition expired | DRG 189 ==
LOC: EDBD → EDUNIT# → N.ED 09:58 → N.EDINP 11:42 → SUATTDRO 11:42 → N.CC 14:36
PROVIDERS: ADMIT Internal Medicine; ATTEND Family Medicine